=== PATIENT | female | born 1940 | race Caucasian/White ===

== ENCOUNTER → 2019-12-15 13:17 | Outpatient (CLI) | payer MEDICARE, SELFPAY ==
[2019-12-16 07:45] LABS: COVID19 Sendout Not Detected (Not Detect)
== END ==
PROVIDERS: Visit Provider Physician Assistant
DX: Z11.59 Encounter for screening for other viral diseases (principal)
CPT/HCPCS: 87635

== ENCOUNTER 2019-12-19 17:10 | Observation (INO) | payer MEDICARE, SELFPAY ==
[2019-12-11 12:49] VITALS: BMI 31.8
[2019-12-18] VITALS (11 sets, daily range): BP systolic 120–145; BP diastolic 43–79; PULSE 58–71; RESP 15–22; TEMP 35.9–36.4; O2SAT 95–100; BMI 31.7
--- NOTE | 2019-12-18 06:00 | DI.RAD.S_ITS ---
PROCEDURE: XR KNEE LT 1TO2V INDICATIONS: total left knee TECHNIQUE: 2 view(s) of the knee acquired. COMPARISON: None. FINDINGS: Bones: Patient is status post knee joint arthroplasty. Hardware components are in expected positions. Visualized bony structures are intact. Soft tissues: Overlying postoperative changes are noted. IMPRESSION: Expected appearance and alignment status post placement of left knee arthroplasty. Dictated by: Christian FISHMAN Interpreted: Werner Vanessa MD on 12/18/2019 at 16:58 Approved by: Werner Vanessa M.D. on 12/19/2019 at 9:41
[2019-12-18] MEDS: PREGABALIN 75 MG CAPSULE PO (11:02)
[2019-12-18] MEDS: CELECOXIB 200 MG CAPSULE PO (11:02)
[2019-12-18] MEDS: ACETAMINOPHEN 325 MG TABLET 975 MG PO (11:02)
[2019-12-18] MEDS: LACTATED RINGERS 1,000 ML 42 ML IV ×2 (11:05→14:51)
--- NOTE | 2019-12-18 11:23 | PM.PREOP ---
Pre-operative Note COVID-19 COVID-19 status: Negative Result date/Date tested (Pos, Neg/Pending): 12/15/19 Interval Note History & Physical reviewed/Exam performed by Physician: Yes Changes to H&P: No
--- NOTE | 2019-12-18 11:23 | PM.OP.1 ---
Operative Date/Time/Diagnoses Date of procedure: 12/18/19 Time of procedure: 15:28 Pre-op diagnosis: Left knee osteoarthritis Post-op diagnosis: same Procedure & Clinicians Procedure: Left total knee arthroplasty Same procedure as scheduled: Yes Indications: The patient presents today for total knee arthroplasty after failure of conservative treatment. The nature of the procedure including the risks and benefits, alternatives, postoperative course and expected outcome were discussed and all questions answered. Consent was obtained. Operative site confirmed and marked. Surgeon: Rashel Tyler Tool Turret Lathe Set Up Operator: Leonora Robertson Anesthesia Type: General, Spinal, Peripheral nerve block and Local Operative Notes Closure Type: primary Specimen(s): none sent Prosthetic devices, grafts, tissues, transplants, or devices: [employer]hew Anupam BCS: 6 femoral component, 4 tibial component, 9 mm BCS polyethylene tray and 35 x 7.5 mm round patella Applied: implant(s) Estimated Blood Loss (mL): 5 Blood products transfused: none Tourniquet time (min): 54 Procedure in detail: The patient was taken to the operative suite and placed under anesthesia. The patient was given prophylactic antibiotics prior to surgery. The patient was also given tranexamic acid, 1 g, just prior to surgery for postoperative hemostasis. The lateral knee was prepped and the joint injected with 20 mL of 1% Lidocaine with epinephrine. The knee was then prepped and draped in usual sterile fashion. The leg was exsanguinated with an Esmarch dressing and the tourniquet raised to 250 torr. A 15 cm anterior incision was made. Next a medial trivector arthrotomy was made. The extensor mechanism was marked to ensure accurate repair. Initial exposing dissection was carried out medially and laterally. The knee was then flexed and the intramedullary femoral guide brian placed. The distal femoral cut was made in 6? of valgus at the +2 position. The femoral size was measured and the appropriate cutting block was then placed and the anterior, posterior and chamfer cuts made. The intramedullary tibial alignment brian was then placed. The guide was set to remove approximately 10 mm from the less affected lateral side. The proximal tibial cut was then made with an oscillating saw. All meniscus and bony debris was then removed. Posterior femoral osteophytes removed with a curved osteotome. Flexion extension gaps were checked. No specific balancing was required other than routine exposure and removal of osteophytes. The soft tissues were then injected with a combination of 20 mL of half percent Marcaine with epinephrine and 20 mL of Exparel. The trial components were then placed. The knee was then extended and the patellar thickness was measured and a cut made removing approximately 9 mm of bone. The patella was then sized and drilled. Some excess lateral bone was excised and the patellofemoral ligament released. The knee went into full extension and flexion beyond 130?. There was excellent medial-lateral balance throughout motion. Patellar tracking was excellent. The trial components were removed and the knee was cleansed with Pulsavac irrigation and dried. The final components were cemented with high viscosity vacuum mixed bone cement with antibiotics. The joint was filled with a dilute Betadine solution. The knee was held in extension and the patellar clamped until the cement was adequately cured. The knee was then irrigated. The extensor mechanism was closed with 5 interrupted #1 Vicryl sutures and a running Quill suture at approximately 90 degrees of flexion. The joint was then injected with a combination of 1 g of tranexamic acid and 20 mL of quarter percent Marcaine with epinephrine. The subcutaneous tissue was closed with 2 0 Vicryl. The skin was closed with absorbable subcuticular sutures and surgical adhesive. An Aquacel dressing and Alvaro wrap were then applied. The patient tolerated the procedure well and was returned to recovery room in good condition. Complications: none Post-operative Condition: stable Disposition: PACU Plan for aftercare: [facility] Protocol.
[2019-12-18] MEDS: MIDAZOLAM 2 MG/2 ML VIAL IV ×2 (13:29→13:30)
[2019-12-18] MEDS: fentaNYL 100 MCG/2 ML INJ 50 MCG IV (13:29)
--- NOTE | 2019-12-18 13:38 | SUR.PREOP ---
Block start time [1330] . Monitoring initiated and maintained throughout procedure. Oxygen and medications given per anesthesiologist instructions. Patient remained stable throughout procedure, no adverse reactions noted. Block end time [1335].
--- NOTE | 2019-12-18 13:40 | SUR.PREOP ---
Pt tolerated block well start time 1330, end time 1335, 2 Versed iv and 50 Fentanyl given iv prior to start and pt sleeping throughout procedure, VSS throughout procedure.
[2019-12-18] MEDS: CEFAZOLIN 2 GM/100 ML FROZ.PIGGY IV ×2 (14:02→22:25)
[2019-12-18] MEDS: LIDOCAINE 1% W/EPI 20 ML INJ (14:18)
[2019-12-18] MEDS: TRANEXAMIC ACID 1,000 MG VIAL 1000 MG INJ (14:20)
--- NOTE | 2019-12-18 14:36 | SUR.OPER ---
Supine on padded OR bed. Pillow under head, arms secured on padded armboards <90 degree abduction. Safety belt across torso. Non-operative leg secured with tape over blanket over lower leg. Operative leg secured in DeMayo/Tod positioner. Foam padded brace at thigh of operative leg.
[2019-12-18] MEDS: BUPIVACAINE 0.25% W/ EPI (PF) 40 ML, BUPIVACAINE LIPOSOME 266 MG, SODIUM CHLORIDE 0.9% ... INJ (14:48)
[2019-12-18] MEDS: BUPIVACAINE 0.25% W/ EPI (PF) 20 ML, TRANEXAMIC ACID 1,000 MG, SODIUM CHLORIDE 0.9% 10 ML INJ (14:49)
[2019-12-18] MEDS: SODIUM CHLORIDE IRRIG SOLUTION 250 ML, POVIDONE-IODINE SPONGE STICKS 1 APPLIC IRR (14:53)
--- NOTE | 2019-12-18 16:53 | PC.NURSE ---
1635 - Pt to room from OR. Alexis CDI, ice pack in place. SCD's initiated. Pt awake and interactive, but then became tearful. Stating that she doesn't do well with pain. Shaking head with eyes clenched tight, Reporting pain to lower back. I don't lay on my back. Assist to reposition. Pt states knee pain is now, overtaking back pain. Continues to be tearful. Discussed pain control option. Pt denies nausea. I will take whatever. Oriented to safety and call light use. Call light in reach.
[2019-12-18] MEDS: LACTATED RINGERS 1,000 ML 100 ML IV (16:57)
[2019-12-18] MEDS: IBUPROFEN 400 MG TABLET PO ×2 (17:00→22:25)
[2019-12-18] MEDS: OXYCODONE IR 10 MG TABLET PO (17:01)
[2019-12-18] MEDS: HYDROMORPHONE 0.5 MG INJ 0.2 MG IV (17:34)
[2019-12-18] MEDS: ONDANSETRON 4 MG/2 ML INJ IV (18:16)
[2019-12-18] MEDS: ACETAMINOPHEN 325 MG TABLET 650 MG PO (22:24)
[2019-12-18] MEDS: ASPIRIN EC 81 MG TABLET PO (22:25)
[2019-12-18] MEDS: DOCUSATE 100 MG CAPSULE PO (22:25)
[2019-12-19] VITALS (7 sets, daily range): BP systolic 124–153; BP diastolic 53–84; PULSE 58–87; RESP 16–20; TEMP 35.9–37.5; O2SAT 93–100
[2019-12-19] MEDS: IBUPROFEN 400 MG TABLET PO ×6 (00:46→21:50)
[2019-12-19] MEDS: OXYCODONE IR 10 MG TABLET PO ×4 (02:45→19:22)
[2019-12-19] MEDS: LACTATED RINGERS 1,000 ML 100 ML IV (02:47)
[2019-12-19 05:21] LABS: Hematocrit 33.4 % (36-46); Hemoglobin 11.6 g/dL (12.0-16.0)
[2019-12-19] MEDS: CEFAZOLIN 2 GM/100 ML FROZ.PIGGY IV (06:01)
--- NOTE | 2019-12-19 09:25 | PT.IIE ---
Current Diagnoses Bilateral primary osteoarthritis of knee (12/18/19) Surgery Performed Operation Date: 12/18/19 12:45 Actual Procedures p Total Knee Arthroplasty(Left) - Rashel Tyler MD Surgical History (Last Updated 05/20/19 @ 13:26 by Amara Vasquez RN) History of bilateral hip arthroplasty (Acute) History of esophagogastroduodenoscopy (EGD) (Acute 2019) History of hysterectomy (Acute) Hx of appendectomy (Acute) Hx of bilateral cataract extraction (Acute 2019) Medical History (Last Updated 05/20/19 @ 13:26 by Amara Vasquez RN) Noe's esophagus (Acute) Colitis (Acute) Diverticulitis (Acute) Eczema (Acute) Meningioma (Acute ~2013) 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 pt stays on main level of the house 4 steps with B rails to enter the house from the garage ramp to enter from the front Home Environment Standard Height Toilet,Walk in Shower,Built-In Shower Seat, Ramp Home Equipment Front Wheel Walker,Four Wheel Walker,Raised Toilet Seat Without Armrests,Hand Held Shower,Grab Bars Near Toilet, Grab Bars In Shower Additional Social History Comment pt stated that spouse has PD. has a caregiver 02/10 and can also assist pt. pt has a bidet at home M2 PT-IP Current Condition Start: 12/19/19 12:59 Freq: NEEDED Status: Active Protocol: Document 12/19/19 09:25 AB (Rec: 12/19/19 13:16 [email or web address]) Physical Therapy Current Condition Current Condition Evaluation Date 12/19/19 Treatment Diagnosis s/p L TKA; difficulty in walking Onset Date 12/18/19 Weight Bearing Status Weight Bearing Status Weight Bear as Tolerated Allowed Weight Bearing Amount (enter % LLE WBAT or #) (%) M3 PT-IP Subjective Start: 12/19/19 12:59 Freq: NEEDED Status: Active Protocol: Document 12/19/19 09:25 AB (Rec: 12/19/19 13:16 [id number]) Subjective Physical Therapy Visit Type Type Initial Evaluation Visit Start Time 09:25 Visit Stop Time 10:37 Total Visit Minutes 72 Number of SENIOR TELECOMMUNICATIONS TECHNICIAN Visits 0 Physical Therapy Visit Comments Patient Comments pt is agreeable to do PT; c/o nausea Therapy Pain Assessment Pain When Pain Assessed During Mobility Pain Present Pain Present Pain Reported Location Left Knee Intensity 7 Scale Used Numeric (0 - 10) Pain Management Techniques Apply Cold,Distraction, Modification of Treatment,Re- positioning,Timing of Activity with Medications M4 PT-IP Mobility and Gait Start: 12/19/19 12:59 Freq: NEEDED Status: Active Protocol: Document 12/19/19 09:25 AB (Rec: 12/19/19 13:16 [email or web address]) PT-Bed Mobility Assessment Supine to Sit Supine to Sit Moderate Assistance,1 Person Assistance,Head of Bed Elevated PT-Transfer Assessment Sit to and From Stand Sit to and from Stand Moderate Assistance,Maximum Assistance,1 Person Assistance ,Use of Upper Extremities Equipment Transfer Assistive Device Gait Belt,Front Wheeled Walker Orthotic/Prosthetic Devices or Brace: No Transfers Transfer Destination Chair,Toilet Transfer Technique Stand Step Pivot Transfer Ability Level of Assist Moderate Assistance,Maximum Assistance,1 Person Assistance ,Use of Upper Extremities Comments Mobility Comments BP has bee stable throughout PT session: 121/65 to 133/63 pt completed supine to sit mod A with LLE. pt was able to sit on EOB SBA. c/o increase nausea. completed sit to stand mod/max A and max cues. able to complete step transfer using FWW to chair mod/max A. pt requested to use the toilet and completed sit to stand from chair mod/ max A and ambulated to the toilet using FWW mod/max A. pt continues to c/o nausea and lightheadedness. placed chair close to pt. pt completed sit to stand from the toilet using grab bar max A and cues and was able to take steps to the chair using FWW mod/max A and cues. positioned pt on chair. call light and table placed within reach. Gait Assessment Gait Gait Assistance Required: Moderate Assistance,Maximum Assistance,1 Person Assist Distance (Feet) 10 Able to Maintain Weight Bearing Status Yes During Gait Assistive Devices Assistive Device Gait Belt,Front Wheeled Walker Orthotic/Prosthetic Devices or Brace: No Gait Deviations General Gait Pattern Antalgic,Decreased Stride Length,Decreased Feet Clearance,Step-to Gait Factors Limiting Gait Function Factors Limiting Gait Function Decreased Activity Tolerance, Decreased Strength,Difficulty Following Directions,Limited Range of Motion,Pain,Poor Balance,Poor Safety Awareness Comments Gait Comments pls refer to mobility section for details PT-Balance Assessment Sitting Balance and Reactions Static Sitting Balance Ability Good Dynamic Sitting Balance Ability Good Standing Balance and Reactions Static Standing Balance Ability Fair Dynamic Standing Balance Ability Fair Device Used FWW M5 PT-IP Objective Assessments Start: 12/19/19 12:59 Freq: NEEDED Status: Active Protocol: Document 12/19/19 09:25 AB (Rec: 12/19/19 13:16 AB [email or web address]) Orientation Orientation/Cognition Level of Alertness Alert Orientation Name,Place,Situation Language Function Ability Hard of Hearing Safety Awareness Decreased Safety Awareness Gross Range of Motion Lower Extremity ROM Impairments L knee flexion: ~ 60 deg L knee extension: lacking ~ 15 deg to 0 Strength Lower Extremity Strength Assessment Left Impaired Hip 3+/5 Knee 3+/5 Sensation Assessment Sensation Gross Sensation WNL Muscle Tone Muscle Tone WNL Yes M6 PT-IP Treatment Start: 12/19/19 12:59 Freq: NEEDED Status: Active Protocol: Document 12/19/19 09:25 AB (Rec: 12/19/19 13:16 AB [id number]) Physical Therapy Treatment Exercises Exercises Quad Sets,Heel Slides Education Education Provided Precautions,Weight Bearing Status,Post-Op Packet,Safety M7 PT-IP Assessment and Plan Start: 12/19/19 12:59 Freq: NEEDED Status: Active Protocol: Document 12/19/19 09:25 AB (Rec: 12/19/19 13:16 AB [email or web address]) PT Summary Assessment and Plan Potential Rehabilitation Potential Good Status of Condition at Evaluation Evolving Summary Impairments Pain,ROM,Strength,Balance, Cognition,Bed Mobility, Transfers,Gait,Activity Tolerance Assessment Summary pt requiring mod/max A with mobility and unable to tolerate much activity with c/ o increase pain, nause and lightheadedness. pt unable to ambulate much this morning. pt plans to go home but at this time, may require SNF rehab. will continue to assess progress and will conduct caregiver training whe appropriate. Goals Bed Mobility Goal Standby Assistance Transfer Goal Standby Assistance,Front Wheeled Walker Gait Goal Standby Assistance,Front Wheel Walker Gait Distance 150 Days to Meet Goals 5 Frequency of Treatment Frequency Of Treatment Twice a Day Treatment Plan Physical Therapy Treatment Plan Bed Mobility Training,Transfer Training,Gait Training, Therapeutic Exercise,Balance Retraining,Post Op Education, Discharge Planning,Hot or Cold Pack,Neuromuscular Re-ed, Coordination Retraining,Manual Therapy Other Recommendations and Next Treatment ambulation, caregiver training Focus whe appropriate Recommendations To Nursing Amount of Assist Needed 1 Person Assist Discharge Recommendations PT Discharge Recommendations Home with 02/10 Assist,Home Health,SNF Rehab,Outpatient PT Transportation Needs at Discharge Private Vehicle,Wheelchair/ Cabulance
[2019-12-19] MEDS: ACETAMINOPHEN 325 MG TABLET 650 MG PO ×3 (09:35→21:48)
[2019-12-19] MEDS: ASPIRIN EC 81 MG TABLET PO ×2 (09:35→21:48)
[2019-12-19] MEDS: DOCUSATE 100 MG CAPSULE PO ×2 (09:36→21:48)
--- NOTE | 2019-12-19 09:40 | PM.PN.1 ---
Subjective Subjective Date Patient Seen: 12/19/19 Time Patient Seen: 10:10 Interval history: Patient is POD#1 s/p left TKA with Dr. Tyler. Pain has been well controlled. She has mobilized about the room. No nausea/vomiting, chest pain or shortness of breath. No complaints. Exam Vital Signs (past 8 hours): - 12/19/19 03:15 Temperature 97.7 F Pulse Rate 64 Respiratory Rate 20 Blood Pressure 137/67 Pulse Oximetry 95 Oxygen Delivery Method Room Air Oxygen Flow Rate 0 Narrative Exam Narrative: 79 year old female resting in bed alert and oriented in no acute distress. Dressing in place is CDI. Neurovascularly intact in distal extremity. Calves are soft. Objective Labs Result Diagrams: 12/19/19 04:55 Labs: Laboratory Results - last 24 hr 12/19/19 04:55 Hgb 11.6 L Hct 33.4 L Assessment & Plan Assessment & Plan narrative: Patient doing well postop. ASA 81mg BID for DVT prophylaxis. She will work with PT today. She has hired a caregiver for postop care. Likely discharge to home later today pending PT clearance. Quality VTE Deep Vein Thrombosis/Pulmonary Embolism Present on Admission: No
[2019-12-19] MEDS: ONDANSETRON 4 MG ODT PO ×2 (10:07→19:22)
--- NOTE | 2019-12-19 11:35 | PC.NURSE ---
Addendum entered by Liliana Rico R.N. 12/19/19 15:32: Patient complained of pain, another 5mg of oxycodone given at 1520, for a total of 10mg. Patient was to groggy initally to give 10mg at one time. She is more comfortable. Patient does not tolerate the least bit of pain or understand that after she works with therapy and walks she is going to have some discomfort. Resting now. Addendum entered by Liliana Rico R.N. 12/19/19 14:29: Patient only given 5mg of oxycodone at 1400 as she was groggy before, she was agreeable to this for working with physical therapy this afternoon. Original Note: Patient given oxycodone 10mg earlier this am and helpful. Patient had a small 25cc emesis of bile, she was given zofran otc earlier. She states that she is feeling better. Patient has an aquacel to her l.knee with ryan wrap in place. She worked with Physical Therapy and had a tough time moving, she was able to take steps and ambulate to the restroom. Visiting with a friend now, her cms is wnl and ppx2.
--- NOTE | 2019-12-19 13:53 | CM.IDA ---
Initial DCP Assessment Note Pt is an 79 yo female, resident of [place], now POD#1 from Left knee surgery w/ Dr Tyler PCP: Joycelyn Padgett Payer: NAT/MELA Met w/patient and her friend Antoine this morning, introduced role. Patient plans to DC home, she does not think she will need HH, has scheduled outpatient PT to start in a week, patient states therapy team agrees w/this (?) Patient is active and indp. at baseline, she cares for her who has Parkinson's. Patient has hired 2 caregivers for at least 3 weeks to assist she and her w/chores and ADLs, patient paying out of pocket. Patient's spouse has 4 adult children that live across the country and numerous grandchildren, patient states none of whom can assist her at this time. Patient expects no needs from DCP team, takes down contact information for [employer] team in case any DC needs or concerns arise. Upon review of afternoon PT note, recommendation is home w/24-7 assist vs SNF d/t slow movement today, requiring a lot of assist. May need to reassess POD#2, although patient seems adamant about returning home and is currently SDC (possibly will switch to obs if stays the night) and would need to pay for SNF out of pocket Following closely. MEMO Hitchcock
[2019-12-19] MEDS: OXYCODONE IR 5 MG TABLET PO ×3 (13:58→22:47)
--- NOTE | 2019-12-19 14:10 | PT.IPTN ---
Current Diagnoses Bilateral primary osteoarthritis of knee (12/18/19) Surgery Performed Operation Date: 12/18/19 12:45 Actual Procedures p Total Knee Arthroplasty(Left) - Rashel Tyler MD Physical Therapy Treatment Note M2 PT-IP Current Condition Start: 12/19/19 12:59 Freq: NEEDED Status: Active Protocol: Document 12/19/19 09:25 AB (Rec: 12/19/19 13:16 AB [email or web address]) Physical Therapy Current Condition Current Condition Evaluation Date 12/19/19 Treatment Diagnosis s/p L TKA; difficulty in walking Onset Date 12/18/19 Weight Bearing Status Weight Bearing Status Weight Bear as Tolerated Allowed Weight Bearing Amount (enter % LLE WBAT or #) (%) M3 PT-IP Subjective Start: 12/19/19 12:59 Freq: NEEDED Status: Active Protocol: Document 12/19/19 14:10 AB (Rec: 12/19/19 15:44 AB [email or web address]) Subjective Physical Therapy Visit Type Type Treatment Note Visit Start Time 14:10 Visit Stop Time 14:57 Total Visit Minutes 47 Number of FREIGHT BRAKEMAN Visits 0 Physical Therapy Visit Comments Patient Comments pt is agreeable to do PT Therapy Pain Assessment Pain When Pain Assessed At Rest Pain Present Pain Present Pain Reported Location Left Knee Intensity 6 Scale Used increases to 8 with mobility Pain Management Techniques Apply Cold,Distraction, Modification of Treatment,Re- positioning,Timing of Activity with Medications M4 PT-IP Mobility and Gait Start: 12/19/19 12:59 Freq: NEEDED Status: Active Protocol: Document 12/19/19 14:10 AB (Rec: 12/19/19 15:44 AB [email or web address]) PT-Bed Mobility Assessment Sit to Supine Sit to Supine Moderate Assistance,1 Person Assistance PT-Transfer Assessment Sit to and From Stand Sit to and from Stand Moderate Assistance,Maximum Assistance,1 Person Assistance ,Use of Upper Extremities Equipment Transfer Assistive Device Gait Belt,Front Wheeled Walker Orthotic/Prosthetic Devices or Brace: No Transfers Transfer Destination Toilet Transfer Technique ambulated using FWW Transfer Ability Level of Assist Moderate Assistance,Maximum Assistance,1 Person Assistance ,Use of Upper Extremities Comments Mobility Comments completed sit to stand from chair mod/max A and max cues. c/o increase pain and nausea. BP: 136/79. pt completed ambulated using FWW to the toilet mod to max A and max cues. required max A for sit to stand from the toilet and was able to maintain standing using FWW for support while NAC assisted with hygiene care and brief management. pt ambulated in room ~ 25 ft using FWW mod to max A and max cues. pt with c/o increase pain. completed sit to supine mod A for elevated LE up to bed. positioned pt on bed. call light and table placed within reach. educated pt on current mobility assistance and recommendation of SNF but pt refused. set up caregiver training for tomorrow at 10 am . recommending homehealth PT and pt agreed. Pt stated that she also has an electric w/c that she can use if needed. Talked to nurse regarding pain control and stated that she will do what she can for pain meds adjustment. Gait Assessment Gait Gait Assistance Required: Moderate Assistance,Maximum Assistance,1 Person Assist Distance (Feet) 25 Able to Maintain Weight Bearing Status Yes During Gait Assistive Devices Assistive Device Gait Belt,Front Wheeled Walker Orthotic/Prosthetic Devices or Brace: No Gait Deviations General Gait Pattern Antalgic,Decreased Stride Length,Decreased Feet Clearance,Step-to Gait Factors Limiting Gait Function Factors Limiting Gait Function Decreased Activity Tolerance, Decreased Strength,Limited Range of Motion,Pain,Poor Balance,Poor Safety Awareness M5 PT-IP Objective Assessments Start: 12/19/19 12:59 Freq: NEEDED Status: Active Protocol: Document 12/19/19 09:25 AB (Rec: 12/19/19 13:16 AB [email or web address]) Orientation Orientation/Cognition Level of Alertness Alert Orientation Name,Place,Situation Language Function Ability Hard of Hearing Safety Awareness Decreased Safety Awareness Gross Range of Motion Lower Extremity ROM Impairments L knee flexion: ~ 60 deg L knee extension: lacking ~ 15 deg to 0 Strength Lower Extremity Strength Assessment Left Impaired Hip 3+/5 Knee 3+/5 Sensation Assessment Sensation Gross Sensation WNL Muscle Tone Muscle Tone WNL Yes M6 PT-IP Treatment Start: 12/19/19 12:59 Freq: NEEDED Status: Active Protocol: Document 12/19/19 14:10 AB (Rec: 12/19/19 15:44 AB [email or web address]) Physical Therapy Treatment Education Education Provided Safety M7 PT-IP Assessment and Plan Start: 12/19/19 12:59 Freq: NEEDED Status: Active Protocol: Document 12/19/19 14:10 AB (Rec: 12/19/19 15:44 AB [email or web address]) PT Summary Assessment and Plan Potential Rehabilitation Potential Good Summary Impairments Pain,ROM,Strength,Balance, Coordination,Sensation,Tone, Cognition,Bed Mobility, Transfers,Gait,Activity Tolerance Progress Towards Goals Slow Progress due to Pain Assessment Summary pt continues to require mod to max A with mobility and unable to tolerate much due to c/o increase pain and nausea. caregiver training will be conducted tomorrow at 10 am and will determine safe d/c plan depending on caregiver training. if pt goes home, pt will require homehealth PT. will continue to assess progress. Goals Bed Mobility Goal Standby Assistance Transfer Goal Standby Assistance,Front Wheeled Walker Gait Goal Standby Assistance,Front Wheel Walker Gait Distance 150 Days to Meet Goals 5 Frequency of Treatment Frequency Of Treatment Twice a Day Treatment Plan Physical Therapy Treatment Plan Bed Mobility Training,Transfer Training,Gait Training, Therapeutic Exercise,Balance Retraining,Post Op Education, Discharge Planning,Hot or Cold Pack,Neuromuscular Re-ed, Coordination Retraining,Manual Therapy Other Recommendations and Next Treatment ambulation, caregiver training Focus 12/19/19 @10 am Recommendations To Nursing Amount of Assist Needed 1 Person Assist Discharge Recommendations PT Discharge Recommendations Home with 02/10 Assist,Home Health,SNF Rehab,Outpatient PT Transportation Needs at Discharge Private Vehicle,Wheelchair/ Cabulance
[2019-12-19] MEDS: HYDROMORPHONE 0.5 MG INJ 0.2 MG IV (20:27)
--- NOTE | 2019-12-19 20:36 | PC.NURSE ---
Patient pain uncontrolled throughout shift. Patient states she gets intense muscle spasms that comes in waves several times an hour. Placed call to Dr. Charlton who ordered Valium 5mg Q4H PRN for muscle spasms, as well as Tums 1000mg Q4H PRN per patient request.
[2019-12-19] MEDS: CALCIUM CARBONATE 500 MG TAB 1000 MG PO (20:39)
[2019-12-19] MEDS: diazePAM 5 MG TABLET PO (20:40)
[2019-12-20] MEDS: IBUPROFEN 400 MG TABLET PO ×3 (01:50→14:10)
[2019-12-20] MEDS: OXYCODONE IR 10 MG TABLET PO ×3 (01:50→14:09)
[2019-12-20 03:50] VITALS: BP 132/68; PULSE 68; RESP 16; TEMP 36.4; O2SAT 94
[2019-12-20] MEDS: diazePAM 5 MG TABLET PO ×2 (03:50→10:16)
[2019-12-20 08:16] VITALS: O2SAT 97
[2019-12-20] MEDS: ACETAMINOPHEN 325 MG TABLET 650 MG PO ×2 (08:40→14:10)
[2019-12-20] MEDS: ASPIRIN EC 81 MG TABLET PO (08:41)
[2019-12-20] MEDS: DOCUSATE 100 MG CAPSULE PO (08:41)
[2019-12-20 09:34] VITALS: BP 122/63; PULSE 60; RESP 16; TEMP 36.4; O2SAT 96
--- NOTE | 2019-12-20 09:55 | PT.IPTN ---
Current Diagnoses Bilateral primary osteoarthritis of knee (12/18/19) Surgery Performed Operation Date: 12/18/19 12:45 Actual Procedures p Total Knee Arthroplasty(Left) - Rashel Tyler MD Physical Therapy Treatment Note M2 PT-IP Current Condition Start: 12/19/19 12:59 Freq: NEEDED Status: Active Protocol: Document 12/19/19 09:25 AB (Rec: 12/19/19 13:16 AB [id number]) Physical Therapy Current Condition Current Condition Evaluation Date 12/19/19 Treatment Diagnosis s/p L TKA; difficulty in walking Onset Date 12/18/19 Weight Bearing Status Weight Bearing Status Weight Bear as Tolerated Allowed Weight Bearing Amount (enter % LLE WBAT or #) (%) M3 PT-IP Subjective Start: 12/19/19 12:59 Freq: NEEDED Status: Active Protocol: Document 12/20/19 09:55 AB (Rec: 12/20/19 11:02 AB [id number]) Subjective Physical Therapy Visit Type Type Treatment Note Visit Start Time 09:55 Visit Stop Time 10:35 Total Visit Minutes 40 Notes caregiver training was scheduled at 10 am today but pt stated that caregiver cannot come in this morning and will come in at 1 pm. stated the one caregiver did not come in to take care of her so the other caregiver that supposedly should have come in for training was not able to come in because she cannot leave pt 's spouse alone at home. Number of FUNCTIONAL SKILLS TUTOR Visits 0 Physical Therapy Visit Comments Patient Comments pt is agreeable to do PT Therapy Pain Assessment Pain When Pain Assessed At Rest Pain Present Pain Present Pain Reported Location Left Knee Intensity 5 Scale Used Numeric (0 - 10) Description Spasm Pain Management Techniques Distraction,Modification of Treatment,Re-positioning, Timing of Activity with Medications M4 PT-IP Mobility and Gait Start: 12/19/19 12:59 Freq: NEEDED Status: Active Protocol: Document 12/20/19 09:55 AB (Rec: 12/20/19 11:02 AB [id number]) PT-Transfer Assessment Sit to and From Stand Sit to and from Stand Moderate Assistance,Maximum Assistance,1 Person Assistance ,Use of Upper Extremities Equipment Transfer Assistive Device Gait Belt,Front Wheeled Walker Orthotic/Prosthetic Devices or Brace: No Transfers Transfer Destination Bed,Toilet Transfer Technique ambulated using FWW Transfer Ability Level of Assist Standby Assistance,Contact Guard Assistance,1 Person Assistance,Use of Upper Extremities Comments Mobility Comments completed sit to stand from chair x 3 attempts max A and max cues. ambulated in room using FWW ~ 15 ft SBA to CGA. c/o increase knee pain and nausea. sat on EOB to rest. nurse aware of pain and gave pt meds. completed sit to stand from bed mod A and cues x 2 attempts. ambulated ~ 12 ft using FWW SBA to CGA and cues. pt sat on EOB and rested. was about to do bed mobility training but pt requested to use the toilet and ambulated to the toilet using FWW SBA. pt wanted to sit on the toilet for a while. call light positioned next to pt and instructed to ask for assist. informed nurse that pt is on the toilet. Gait Assessment Gait Gait Assistance Required: Standby Assistance,Contact Guard Assist Distance (Feet) 15 Able to Maintain Weight Bearing Status Yes During Gait Assistive Devices Assistive Device Gait Belt,Front Wheeled Walker Orthotic/Prosthetic Devices or Brace: No Gait Deviations General Gait Pattern Antalgic,Decreased Stride Length,Decreased Feet Clearance,Step-to Gait Factors Limiting Gait Function Factors Limiting Gait Function Decreased Activity Tolerance, Decreased Strength,Difficulty Following Directions,Limited Range of Motion,Pain,Poor Balance M5 PT-IP Objective Assessments Start: 12/19/19 12:59 Freq: NEEDED Status: Active Protocol: Document 12/19/19 09:25 AB (Rec: 12/19/19 13:16 AB [id number]) Orientation Orientation/Cognition Level of Alertness Alert Orientation Name,Place,Situation Language Function Ability Hard of Hearing Safety Awareness Decreased Safety Awareness Gross Range of Motion Lower Extremity ROM Impairments L knee flexion: ~ 60 deg L knee extension: lacking ~ 15 deg to 0 Strength Lower Extremity Strength Assessment Left Impaired Hip 3+/5 Knee 3+/5 Sensation Assessment Sensation Gross Sensation WNL Muscle Tone Muscle Tone WNL Yes M6 PT-IP Treatment Start: 12/19/19 12:59 Freq: NEEDED Status: Active Protocol: Document 12/20/19 09:55 AB (Rec: 12/20/19 11:02 AB [id number]) Physical Therapy Treatment Exercises Exercises Heel Slides Education Education Provided Safety M7 PT-IP Assessment and Plan Start: 12/19/19 12:59 Freq: NEEDED Status: Active Protocol: Document 12/20/19 09:55 AB (Rec: 12/20/19 11:02 AB [id number]) PT Summary Assessment and Plan Potential Rehabilitation Potential Good Summary Impairments Pain,ROM,Strength,Balance, Coordination,Sensation,Tone, Cognition,Bed Mobility, Transfers,Gait,Activity Tolerance Progress Towards Goals Slow Progress due to Pain Assessment Summary pt continues to have increase L knee pain affecting mobility and activity tolerance. ambulation is steadier today but continues to be limted due to pain. pt plans to just use her electric w/c to get into her house with a ramp entry. caregiver set to come in at 1pm for training today. pt will require homehealth PT . pt also stated that her friend will bring her electric w/c when he picks her up on d /c and his van has a lift for the electric w/c. Goals Bed Mobility Goal Standby Assistance Transfer Goal Standby Assistance,Front Wheeled Walker Gait Goal Standby Assistance,Front Wheel Walker Gait Distance 150 Days to Meet Goals 5 Frequency of Treatment Frequency Of Treatment Twice a Day Treatment Plan Physical Therapy Treatment Plan Bed Mobility Training,Transfer Training,Gait Training, Therapeutic Exercise,Balance Retraining,Post Op Education, Discharge Planning,Hot or Cold Pack,Neuromuscular Re-ed, Coordination Retraining,Manual Therapy Other Recommendations and Next Treatment ambulation, caregiver training Focus 12/19/19 @1pm Recommendations To Nursing Amount of Assist Needed 1 Person Assist Discharge Recommendations PT Discharge Recommendations Home with 02/10 Assist,Home Health Transportation Needs at Discharge Private Vehicle
--- NOTE | 2019-12-20 10:01 | PM.PNPO.1 ---
Subjective Subjective Date Patient Seen: 12/20/19 Time Patient Seen: 10:01 Interval history: POD #2 s/p L TKA with Dr. Tyler. Patient had significant muscle spasms yesterday. She was provided Valium and this is alleviated the muscle spasms significantly. She was slow to mobilize after her previous total knee arthroplasty but states she is doing much better after this total knee arthroplasty. She has a caregiver lined up for home. Exam Vital Signs (past 8 hours): - 12/20/19 03:50 12/20/19 08:16 12/20/19 09:34 Temperature 97.5 F L 97.6 F Pulse Rate 68 60 Respiratory Rate 16 16 Blood Pressure 132/68 122/63 Pulse Oximetry 94 97 96 Oxygen Delivery Method Room Air Oxygen Flow Rate 0 Narrative Exam Narrative: Patient sitting in bedside chair no acute distress. She is alert oriented x3. Calves are soft, compressible, nontender bilaterally. Pulses are 2+ and symmetrical. Dressing on left knee is CDI. Alvaro wrap in place. She is able to actively dorsiflex plantar flex. Objective Labs Result Diagrams: 12/19/19 04:55 Assessment & Plan Post-op Postoperative Procedures: Procedures Operation Date: 12/18/19 12:45 Actual Procedures Side Surgeon p Total Knee Arthroplasty Left Rashel Tyler MD Patient mobilize with PT today. Will continue Valium for muscle spasms. Will send her home with Lisafran as she complaints of some mild nausea today. She has oxycodone at home already. If she is able to mobilize safely with adequate pain control she could go home today with her caregiver. Quality VTE Deep Vein Thrombosis/Pulmonary Embolism Present on Admission: No
[2019-12-20] MEDS: SODIUM CHLORIDE 0.9% FLUSH 10 ML IV (10:16)
--- NOTE | 2019-12-20 12:57 | CM.DPC ---
DCP Cont for HH Per Ortho PA, pt may be stable for d/c home today pending CG training with PT. Per PT, pt's CG was not able to make the 1000 scheduled CG training but will be present bedside around 1300. PT still recommending HH for safe d/c home with CG. SW met bedside with pt prior to 1300 CG training and she confirms that she is feeling significantly better than yesterday but still with pain and requiring assist. Pt has hx of [facility] for SNF for 2 prior surgeries but is hopeful for home when stable for discharge. Pt denies any hx of HH herself but states her recently had [facility] and she felt they provided good services. SW gave pt the HH Choice List and preference is [facility] again. SW called [facility] and gave new referral and then faxed clinicals along with F2F and MD orders and updated pt likely to d/c later today or tomorrow pending CG training soon and pain management. [facility] confirms they should be able to have start of care on Sunday12/22/19. Plan: SW to follow after CG training with PT today around 1300 towards plan of home with CG support and new [facility] referral. SW to fax d/c summary to [facility] at discharge. MEMO Faust
[2019-12-20 13:07] VITALS: BP 125/66; PULSE 61; RESP 15; TEMP 36.6; O2SAT 97
--- NOTE | 2019-12-20 13:17 | PT.IPTN ---
Current Diagnoses Bilateral primary osteoarthritis of knee (12/18/19) Surgery Performed Operation Date: 12/18/19 12:45 Actual Procedures p Total Knee Arthroplasty(Left) - Rashel Tyler MD Physical Therapy Treatment Note M2 PT-IP Current Condition Start: 12/19/19 12:59 Freq: NEEDED Status: Active Protocol: Document 12/19/19 09:25 AB (Rec: 12/19/19 13:16 AB [id number]) Physical Therapy Current Condition Current Condition Evaluation Date 12/19/19 Treatment Diagnosis s/p L TKA; difficulty in walking Onset Date 12/18/19 Weight Bearing Status Weight Bearing Status Weight Bear as Tolerated Allowed Weight Bearing Amount (enter % LLE WBAT or #) (%) M3 PT-IP Subjective Start: 12/19/19 12:59 Freq: NEEDED Status: Active Protocol: Document 12/20/19 13:17 AB (Rec: 12/20/19 15:25 AB [id number]) Subjective Physical Therapy Visit Type Type Treatment Note Visit Start Time 13:17 Visit Stop Time 14:05 Total Visit Minutes 48 Number of MANUFACTURING ENGINEER Visits 0 Physical Therapy Visit Comments Patient Comments pt is agreeable to do PT. caregiver in room for training Therapy Pain Assessment Pain When Pain Assessed At Rest Pain Present Pain Present Pain Reported Location Left Knee Intensity 5 Scale Used Numeric (0 - 10) Pain Management Techniques Distraction,Re-positioning, Timing of Activity with Medications M4 PT-IP Mobility and Gait Start: 12/19/19 12:59 Freq: NEEDED Status: Active Protocol: Document 12/20/19 13:17 AB (Rec: 12/20/19 15:25 AB [id number]) PT-Bed Mobility Assessment Supine to Sit Supine to Sit Moderate Assistance,1 Person Assistance Sit to Supine Sit to Supine Moderate Assistance,1 Person Assistance PT-Transfer Assessment Sit to and From Stand Sit to and from Stand Minimal Assistance,1 Person Assistance,Use of Upper Extremities Equipment Transfer Assistive Device Gait Belt,Front Wheeled Walker Orthotic/Prosthetic Devices or Brace: No Transfers Transfer Destination Chair Transfer Technique Stand Step Pivot Comments Mobility Comments pt sitting on EOB. caregiver in room for training. educated caregiver on how to use safety belt and how to assist pt. caregiver was able to put safety belt on, assist pt with sit to stand and ambulation in room using FWW ~ 35 ft SBA to CGA. pt completed bed mobility supine <>sit x 2 sets and caregiver was able to assist and cue pt appropriately. pt completed transfer from bed to chair using FWW min A and cues. pt asked regarding car transfers. Pt informed PT this morning that she will have her friend get her electric w/c at home and go home on an electric w/c since her friend as a van with w/c lift. pt stated that she really don't want to do that. pt called his friend and friend stated that the car chair is 31 in above the ground and 11 inches away from the door. informed pt that this will be too high and at this time, pt is not safe to step up even to use a step stool. informed pt regarding safety with transfers and agreed to use electric w/c to go home. Gait Assessment Gait Gait Assistance Required: Standby Assistance,Contact Guard Assist Distance (Feet) 35 Able to Maintain Weight Bearing Status Yes During Gait Assistive Devices Assistive Device Gait Belt,Front Wheeled Walker Orthotic/Prosthetic Devices or Brace: No Gait Deviations General Gait Pattern Antalgic,Decreased Stride Length,Decreased Feet Clearance,Step-to Gait M5 PT-IP Objective Assessments Start: 12/19/19 12:59 Freq: NEEDED Status: Active Protocol: Document 12/19/19 09:25 AB (Rec: 12/19/19 13:16 AB [id number]) Orientation Orientation/Cognition Level of Alertness Alert Orientation Name,Place,Situation Language Function Ability Hard of Hearing Safety Awareness Decreased Safety Awareness Gross Range of Motion Lower Extremity ROM Impairments L knee flexion: ~ 60 deg L knee extension: lacking ~ 15 deg to 0 Strength Lower Extremity Strength Assessment Left Impaired Hip 3+/5 Knee 3+/5 Sensation Assessment Sensation Gross Sensation WNL Muscle Tone Muscle Tone WNL Yes M6 PT-IP Treatment Start: 12/19/19 12:59 Freq: NEEDED Status: Active Protocol: Document 12/20/19 13:17 AB (Rec: 12/20/19 15:25 AB [id number]) Physical Therapy Treatment Exercises Exercises Heel Slides Education Education Provided Safety Other Treatments Other Treatment Performed educated caregiver on how to assist pt with heel slides and counterdemonstrated. M7 PT-IP Assessment and Plan Start: 12/19/19 12:59 Freq: NEEDED Status: Active Protocol: Document 12/20/19 13:17 AB (Rec: 12/20/19 15:25 AB [id number]) PT Summary Assessment and Plan Potential Rehabilitation Potential Good Summary Impairments Pain,ROM,Strength,Balance, Coordination,Sensation,Tone, Cognition,Bed Mobility, Transfers,Gait,Activity Tolerance Progress Towards Goals Slow Progress due to Pain Assessment Summary Caregiver training conducted and caregiver is able to safely assist pt with mobility and cue pt appropriately. pt continues to present with decrease activity tolerance and unable to walk far. educated pt on safety and having resting stations at home and using bedside commode at night. pt and caregiver understood and agreed. pt will need home health PT on d/ c. Goals Bed Mobility Goal Standby Assistance Transfer Goal Standby Assistance,Front Wheeled Walker Gait Goal Standby Assistance,Front Wheel Walker Gait Distance 150 Days to Meet Goals 5 Frequency of Treatment Frequency Of Treatment Twice a Day Treatment Plan Physical Therapy Treatment Plan Bed Mobility Training,Transfer Training,Gait Training, Therapeutic Exercise,Balance Retraining,Post Op Education, Discharge Planning,Hot or Cold Pack,Neuromuscular Re-ed, Coordination Retraining,Manual Therapy Recommendations To Nursing Amount of Assist Needed 1 Person Assist Discharge Recommendations PT Discharge Recommendations Home with 02/10 Assist,Home Health Transportation Needs at Discharge Private Vehicle,Wheelchair/ Cabulance
--- NOTE | 2019-12-20 15:16 | PC.NURSE ---
Discharge instructions and home care handouts reviewed with patient. Patient showered and dressed and sitting up waiting for her friend Antoine to arrive to take her home with her electric wheelchair and van. Aqu[employer]el intact. Patient states understanding of discharge instructions and has no further questions or concerns at this time. Patient confirms she has a follow up appointment scheduled. Call light within [facility] evening shift RN to assume care while patient waiting for her ride.
--- NOTE | 2019-12-20 15:59 | PC.NURSE ---
pt used her own wheelchair and got escorted by TOOL KEEPER downstairs. all belongings returned to patient. dc teaching provided by day shift nurse. paper work with patient.
== END 2019-12-20 15:58 | disposition home or self-care (01) ==
LOC: OR 12-22 07:35 → AC 12-22 07:35
PROVIDERS: Admitting Provider Orthopaedic Surgery; PCP Physician Assistant Medical; Referring Provider Physician Assistant Medical; Visit Provider Orthopaedic Surgery
PROC: 0SRD0JZ Replacement of Left Knee Joint with Synthetic Substitute, Open Approach (ICD-10-PCS; CPT 27447; principal; 2019-12-18 12:45)
DX: M17.12 Unilateral primary osteoarthritis, left knee (principal); K21.9 Gastro-esophageal reflux disease without esophagitis; E66.9 Obesity, unspecified; Z68.31 Body mass index [BMI] 31.0-31.9, adult
CPT/HCPCS: 27447; 36415; 64450; 73560; 85014; 85018; 94760; 97162; 97530; C1776; G0378; C9290; J0690; J1170; J2250; J2405; J2704; J3010

== ENCOUNTER → 2021-04-11 12:24 | Outpatient (CLI) | payer MEDICARE, SELFPAY ==
[2019-12-18 17:12] VITALS: BMI 31.7
--- NOTE | 2021-04-11 | DI.ECHO.S_ITS ---
[facility]---------+ [facility] +---------+ : : [address] : [place] : : : : [id number] : : : : Phone: [phone]+ Echocardiogram Report + + :Name: GUS BELTRAN Study Date: 04/11/2021 Height: 68 in : :[facility] ReadingLocation: Weight: 214 lb : : Gender: Female BSA: 2.1 m2 : :: 1940 Age: 80 yrs BP: 129/71 mmHg: :Reason For Study: Atrial fibrillation : :Ordering Physician: Shubham : :Tyshawn Carpio Performed By: Pranav Marquis : :Referring: SHUBHAM CARPIO : + + Interpretation Summary 1) Normal left ventricular size, wall motion, and systolic function (EF 60- 65%). 2) Normal right ventricular size and function. 3) No significant valvular abnormalities. 4) No prior Echo available for comparison. Procedure: A two-dimensional transthoracic echocardiogram with color flow and Doppler was performed. The study quality was technically adequate. There is no prior echocardiogram noted for this patient. Technically difficult aquisition on apical window. The patient was in normal sinus rhythm during the exam. Left Ventricle: The left ventricle is normal in size. There is borderline concentric left ventricular hypertrophy. Left ventricular systolic function appears normal without focal wall motion abnormalities. The ejection fraction is estimated to be 60-65%. Diastolic parameters suggest probable normal left ventricular diastolic function and normal filling pressures. Right Ventricle: The right ventricle is normal in size and function. Atria: The left atrial size is normal. The right atrium is mild to moderately dilated. There is no Doppler evidence for an interatrial shunt. Mitral Valve: The mitral valve is normal. There is trace mitral regurgitation. Aortic Valve: The aortic valve is trileaflet. The aortic valve opens well. There is no aortic valve stenosis. There is trace aortic regurgitation. Tricuspid Valve: The tricuspid valve is normal. There is mild tricuspid regurgitation. The right ventricular systolic pressure is estimated to be at least 35 mmHg based on an estimated right atrial pressure of 3 mm Hg. Pulmonic Valve: The pulmonic valve leaflets are thin and pliable; valve motion is normal. There is trace pulmonic regurgitation. Great Vessels: The aortic root is normal size. The ascending aorta is normal in size. The aortic arch is normal in size. The IVC is of normal diameter and collapses greater than 50% with a sniff. This suggests a low right atrial pressure of 3 mm Hg. Pericardium/ Pleura There is no pericardial effusion. There is an anterior echo-free space consistent with a fat pad. There is no pleural effusion. MMode/2D Measurements & Calculations LVIDd: 4.4 cm LVOT diam: 2.2 cm LVIDs: 2.6 cm Ao root diam: 3.0 cm FS: 42.4 % asc Aorta Diam: 3.3 cm IVSd: 1.1 cm Ao Arch Diam (Prox Trans): 2.9 cm LVPWd: 1.3 cm LV reyes. diameter/BSA (cm/m^2): 2.1 LV sys. diameter/BSA (cm/m^2): 1.2 LA A2 area: 16.9 cm2 RA long axis: 5.0 cm LA A4 area: 19.0 cm2 RA area: 20.9 cm2 LA length (vol): 5.5 cm RA vol: 73.8 ml LA vol: 49.6 ml RA : 35.1 ml/m2 LA vol index: 23.6 ml/m2 RVD1 (basal): 3.1 cm TAPSE: 2.0 cm Doppler Measurements & Calculations Ao V2 max: 109.6 cm/sec LVOT Max Jaylon: 92.2 cm/sec Ao V2 mean: 75.6 cm/sec LV V1 max P.4 mmHg Ao max P.8 mmHg LV V1 VTI: 21.4 cm Ao mean P.5 mmHg GUILLERMO(I,D): 3.2 cm2 Ao V2 VTI: 25.6 cm GUILLERMO(V,D): 3.2 cm2 sev ratio: 0.84 GUILLERMO indexed to BSA (cm^2/m^2): 1.5 MV E max jaylon: 62.9 cm/sec TR max jaylon: 283.7 cm/sec MV A max jaylon: 75.0 cm/sec TR max P.2 mmHg MV E/A: 0.84 Med Peak E' Jaylon: 4.7 cm/sec E/E' med: 13.3 Lat Peak E' Jaylon: 6.3 cm/sec E/E' lat: 10.0 E/e' average: 11.6 MV dec time: 0.24 sec SV(LVOT): 80.6 ml Reading Physician:02:39 PM
== END ==
PROVIDERS: PCP Physician Assistant Medical; Referring Provider Internal Medicine Cardiovascular Disease; Visit Provider Internal Medicine Cardiovascular Disease
DX: I07.1 Rheumatic tricuspid insufficiency (principal); I48.0 Paroxysmal atrial fibrillation
CPT/HCPCS: 93306

== ENCOUNTER → 2022-11-18 13:46 | Outpatient (CLI) | payer MEDICARE, SELFPAY ==
[2019-12-18 17:12] VITALS: BMI 31.7
--- NOTE | 2022-11-18 | DI.MRI.S_ITS ---
PROCEDURE: MR SHOULDER RT WO CON INDICATIONS: ROTATOR CUFF TENDINITIS TECHNIQUE: Noncontrast oblique coronal T2 fast spin echo with fat saturation, oblique sagittal T1 spin echo and T2 fast spin echo with fat saturation, axial T1 spin echo and T2 fast spin echo with fat saturation through the shoulder. COMPARISON: [facility] [place], CR, XR SHOULDER 2+ VIEWS RIGHT, 11/07/2022, 10:25. FINDINGS: Image quality: Excellent. Rotator cuff: There is a large full-thickness tear involving the supraspinatus tendon and the majority of the anterior infraspinatus tendon measuring up to 2.6 cm in anterior-posterior dimension with proximal tendon retraction measuring up to 4.2 cm. There is mild atrophy and grade 2 fatty infiltration of the supraspinatus and infraspinatus muscles. The teres minor tendon is intact. There is mild subscapularis tendinosis and low-grade partial articular sided tearing at the superior insertion. Bones and bursae: No acute trabecular bone injury or fracture. The humeral head is high riding with narrowing of the acromiohumeral interval and remodeling of the inferior acromion. Generalized partial-thickness cartilage thinning irregularity is seen in the glenohumeral joint. There are moderate degenerative changes at the acromioclavicular joint with subchondral cystic changes and edema and marginal osteophyte formation. A small amount of fluid in the subacromial/subdeltoid bursa communicates with the glenohumeral joint space. Capsule and soft tissues: There is diffuse labral degeneration and chronic degenerative tearing. The proximal biceps long head tendon is not visualized, consistent with chronic tendon tearing and distal retraction. There is partial effacement of the fat in the rotator interval. Glenohumeral ligaments appear to be intact. IMPRESSION: 1. Full-thickness tearing of the supraspinatus tendon and the majority of the anterior infraspinatus tendon measuring up to 2.6 cm in anterior-posterior dimension with proximal tendon retraction measuring up to 4.2 cm. Mild atrophy and grade 2 fatty infiltration of the supraspinatus and infraspinatus muscles. Humeral head is high riding with narrowing of the acromiohumeral interval and chronic remodeling of the inferior acromion. 2. Mild tendinosis and low-grade partial articular sided tearing of the subscapularis tendon at the superior insertion. 3. Complete tearing distal retraction of the proximal biceps long head tendon. 4. Diffuse labral degeneration and chronic degenerative tearing. 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 5. Moderate acromioclavicular joint osteoarthrosis. 6. Small amount of fluid in the subacromial/subdeltoid bursa communicates with the glenohumeral joint space. Approved by: Simon Walton M.D. on 11/20/2022 at 11:17
== END ==
PROVIDERS: PCP Physician Assistant Medical; Referring Provider Orthopaedic Surgery; Visit Provider Orthopaedic Surgery
DX: M75.121 Complete rotator cuff tear or rupture of right shoulder, not specified as traumatic (principal); S46.111A Strain of muscle, fascia and tendon of long head of biceps, right arm, initial encounter; M75.81 Other shoulder lesions, right shoulder; M94.211 Chondromalacia, right shoulder; M19.011 Primary osteoarthritis, right shoulder
CPT/HCPCS: 73221

== ENCOUNTER 2022-12-11 01:45 | Inpatient (IN) | payer MEDICARE, SELFPAY ==
[2019-12-18 17:12] VITALS: BMI 31.7
[2022-12-11] VITALS (19 sets, daily range): BP systolic 126–180; BP diastolic 61–83; PULSE 61–76; RESP 16–29; TEMP 36.4–37.4; O2SAT 91–98; BMI 33.4
--- NOTE | 2022-12-11 01:52 | ED.ABDPAIN ---
HPI - Abdominal Pain General Chief Complaint: Abdominal Pain Stated Complaint: ABD Pain Time Seen by Provider: 12/11/22 01:45 History of Present Illness HPI narrative: Patient is an 82-year-old female who presents with sudden onset of abdominal pain and nausea and vomiting. She reports the pain is epigastric and upper abdominal area in nature. No specific right upper quadrant pain. She denies any radiation to her chest or palpitations. She reports that she felt well earlier in the day she and her friend went to play. She does admit to drinking alcohol with 1 particular friend however he reports she did not have alcohol at dinner night. She has had normal bowel movements. She received fentanyl with EMS which has helped some but she still is in quite a bit of pain. Related Data Previous Rx's Medication Instructions Recorded acetaminophen 325 mg tablet 650 mg PO TID #40 tabs 12/19/19 aspirin 81 mg tablet,delayed 81 mg PO BID #40 tabs 12/19/19 release docusate sodium 100 mg capsule 100 mg PO BID #40 caps 12/19/19 (DOK) ibuprofen 400 mg tablet 400 mg PO Q4HR #40 tabs 12/19/19 oxycodone 5 mg tablet 5 mg PO Q3HR PRN Pain, Moderate 12/19/19 (4-6) #1 tab diazepam 5 mg tablet 5 mg PO Q6HR PRN Muscle Spasms #30 12/20/19 tabs ondansetron 4 mg disintegrating 4 mg PO Q4HR PRN Nausea #10 tabs 12/20/19 tablet Allergies Allergy/AdvReac Type Severity Reaction Status Date / Time adhesive tape Allergy Intermediate Rash - Verified 12/15/19 13:40 Paper/silk tape ok Review of Systems Review of Systems ROS Unobtainable: All systems reviewed & are unremarkable except as noted in HPI and below Patient History Medical History Noe's esophagus Colitis Diverticulitis Eczema Meningioma (~2013) RBBB with left anterior fascicular block Surgical History History of bilateral hip arthroplasty History of esophagogastroduodenoscopy (EGD) (2019) History of hysterectomy Hx of appendectomy Hx of bilateral cataract extraction (2019) Social History household members: spouse and caregiver Smoking Status: Former smoker alcohol intake: current Smoking Status: Former smoker alcohol intake frequency: a few times a week Substance Use Type: does not use Exam Initial Vital Signs Initial Vital Signs: Vital Signs Pulse Rate 64 12/11/22 01:49 Respiratory Rate 25 H 12/11/22 01:49 Pulse Oximetry 96 12/11/22 01:49 GENERAL: Alert 82-year-old female appears uncomfortable HEENT: Head atraumatic,EOMI, pupils reactive, face symmetric, moist mucous membranes CARDIOVASCULAR: Regular rate and rhythm without murmurs, rubs or gallops. RESPIRATORY: Breath sounds equal bilaterally, no wheezes rales or rhonchi. ABDOMEN: Soft, mild epigastric pain negative Oswald sign no guarding no rebound no lower abdominal pain no hernia EXTREMITIES: Normal range of motion, no clubbing or edema. Neurovascularly intact NEUROLOGICAL: Alert and oriented x4. SKIN: Warm, dry, no laceration, no petechiae, no rashes or lesions. Course Orders Ordered: ED Orders 12/11/22 01:51 Complete Blood Count AUTO DIFF Stat Comprehensive Metabolic Panel Stat Lactate (Lactic Acid) Stat Lipase Stat 12/11/22 01:53 CT abdomen pelvis w con Stat EKG-12 Lead Stat 12/11/22 02:55 Urine Culture Stat Urine Microscopic Stat Hydromorphone HCl (Hydromorphone 0.5 Mg Inj) 0.5 mg IV Q2H PRN PRN Reason: Pain, Severe (7-10) Last Admin: 12/11/22 05:48 Dose: 0.5 mg Documented By: Sodium Chloride (Normal Saline 0.9%) 1,000 mls @ 150 mls/hr IV CONT DOMINIC Last Admin: 12/11/22 05:48 Dose: 150 mls/hr Documented By: Naloxone HCl (Naloxone 0.4 Mg/Ml Vial) 0.2 mg IV Q2MIN PRN PRN Reason: Opiate Reversal Ondansetron HCl (Ondansetron 4 Mg/2 Ml Inj) 4 mg IV Q8HR PRN PRN Reason: Nausea And Vomiting Ondansetron HCl (Ondansetron 4 Mg Odt) 4 mg PO Q8HR PRN PRN Reason: Nausea And Vomiting Oxycodone HCl (Oxycodone Ir 5 Mg Tablet) 5 mg PO Q3H PRN PRN Reason: Pain, Moderate (4-6) Promethazine HCl (Promethazine 12.5 Mg Supp) 12.[address] Q6HR PRN PRN Reason: Nausea And Vomiting Discontinued Medications Sodium Chloride (Normal Saline 0.9%) 1,000 mls @ 1,000 mls/hr IV BOLUS ONE Stop: 12/11/22 03:37 Last Infusion: 12/11/22 04:50 Dose: 0 mls/hr Documented By: Admin: 12/11/22 02:47 Dose: 1,000 mls/hr Documented By: ROSALIO Morphine Sulfate (Morphine 2 Mg/Ml Inj) 2 mg IV NOW ONE Stop: 12/11/22 01:54 Last Admin: 12/11/22 02:00 Dose: 2 mg Documented By: ROSALIO Ondansetron HCl (Ondansetron 4 Mg/2 Ml Inj) 4 mg IV NOW ONE Stop: 12/11/22 01:54 Last Admin: 12/11/22 01:59 Dose: 4 mg Documented By: ROSALIO Vital Signs Vital signs: Vital Signs - 8 hr 12/11/22 01:55 12/11/22 01:49 12/11/22 02:19 Temperature 97.5 F L Pulse Rate 64 64 Respiratory Rate 18 25 H Blood Pressure 180/82 H 149/83 H Pulse Oximetry 97 96 Oxygen Delivery Method Room Air 12/11/22 02:19 12/11/22 02:53 12/11/22 03:00 Temperature Pulse Rate 61 67 Respiratory Rate 17 Blood Pressure 164/69 H Pulse Oximetry 96 95 Oxygen Delivery Method 12/11/22 03:01 12/11/22 03:01 12/11/22 03:30 Temperature Pulse Rate 66 Respiratory Rate 26 H Blood Pressure 168/80 H 166/74 H Pulse Oximetry 97 Oxygen Delivery Method 12/11/22 03:30 12/11/22 04:00 12/11/22 04:01 Temperature Pulse Rate 70 68 Respiratory Rate 29 H 28 H Blood Pressure 171/76 H Pulse Oximetry 93 94 Oxygen Delivery Method MDM - Abdominal Pain Lab Data 12/11/22 01:51 12/11/22 01:51 Labs: Lab Results 12/11/22 12/11/22 12/11/22 Range/Units 01:51 01:51 01:51 WBC 8.2 (4.5-11.0) X10^3/uL RBC 4.20 (4.0-5.2) X10^6/uL Hgb 12.8 (12.0-16.0) g/dL Hct 38.3 (36-46) % MCV 91.2 (80-100) fL MCH 30.5 (26-34) PG MCHC 33.5 (30-36) % RDW 14.5 (11.6-14.8) % Plt Count 275 (150-400) X10^3/uL Neut % (Auto) 63.3 (50-75) % Lymph % (Auto) 28.0 (25-40) % [place] % (Auto) 5.5 (3-14) % Eos % (Auto) 2.6 (2-4) % Baso % (Auto) 0.6 (0-2) % Neut # (Auto) 5200 (7163-0555) /uL Lymph # (Auto) 2300 (3000-7823) /uL [place] # (Auto) 400 (0-900) /uL Eos # (Auto) 200 (0-450) /uL Baso # (Auto) 0 (0-100) /uL Sodium 139 (137-145) mmol/L Potassium 3.5 (3.4-5.1) mmol/L Chloride 105 (98-107) mmol/L Carbon Dioxide 24 (22-32) mmol/L BUN 22 H (7-17) mg/dL Creatinine 0.76 (0.52-1.04) mg/dL Estimated GFR > 60 (>60) mL/min BUN/Creatinine Ratio 28.9 H (6-22) Glucose 133 H (80-110) mg/dL Lactate 2.0 (0.7-2.1) mmol/L Calcium 10.1 (8.4-10.2) mg/dL Total Bilirubin 0.6 (0.2-1.3) mg/dL AST 91 H (14-36) IU/L ALT 40 H (<35) IU/L Alkaline Phosphatase 106 (38-126) U/L Total Protein 7.5 (6.3-8.2) g/dL Albumin 4.2 (3.5-5.0) g/dL Globulin 3.3 (1.7-4.1) g/dL Albumin/Globulin Ratio 1.3 (1.0-2.8) Lipase 21240 H (23-300) U/L Urine RBC (0-5/HPF) Urine WBC (0-5/HPF) Ur Squamous Epith Cells (0-5/HPF) Urine Bacteria (None) Ur Culture Indicated? 12/11/22 Range/Units 02:55 WBC (4.5-11.0) X10^3/uL RBC (4.0-5.2) X10^6/uL Hgb (12.0-16.0) g/dL Hct (36-46) % MCV (80-100) fL MCH (26-34) PG MCHC (30-36) % RDW (11.6-14.8) % Plt Count (150-400) X10^3/uL Neut % (Auto) (50-75) % Lymph % (Auto) (25-40) % [place] % (Auto) (3-14) % Eos % (Auto) (2-4) % Baso % (Auto) (0-2) % Neut # (Auto) (4302-2627) /uL Lymph # (Auto) (7469-8054) /uL [place] # (Auto) (0-900) /uL Eos # (Auto) (0-450) /uL Baso # (Auto) (0-100) /uL Sodium (137-145) mmol/L Potassium (3.4-5.1) mmol/L Chloride (98-107) mmol/L Carbon Dioxide (22-32) mmol/L BUN (7-17) mg/dL Creatinine (0.52-1.04) mg/dL Estimated GFR (>60) mL/min BUN/Creatinine Ratio (6-22) Glucose (80-110) mg/dL Lactate (0.7-2.1) mmol/L Calcium (8.4-10.2) mg/dL Total Bilirubin (0.2-1.3) mg/dL AST (14-36) IU/L ALT (<35) IU/L Alkaline Phosphatase (38-126) U/L Total Protein (6.3-8.2) g/dL Albumin (3.5-5.0) g/dL Globulin (1.7-4.1) g/dL Albumin/Globulin Ratio (1.0-2.8) Lipase (23-300) U/L Urine RBC None seen (0-5/HPF) Urine WBC 30-100/hpf H (0-5/HPF) Ur Squamous Epith Cells 0-1 /hpf (0-5/HPF) Urine Bacteria Many (>30) H (None) Ur Culture Indicated? Specimen cultured Point of care testing: Urine Dip Bedside Urine Glucose Negative Bedside Urine Bilirubin - Negative Bedside Urine Ketone - Negative Urine Specific [place] 1.02 Bedside Urine Occult Blood +/- Bedside Urine pH 6 Bedside Urine Protein - Negative Bedside Urine Urobilinogen - Negative Bedside Urine Nitrite + Positive Bedside Urine Leukocytes - Negative Esterase Imaging Data CT scan - abdomen/pelvis: Radiologist's Impression: Preliminary report: Mild acute pancreatitis. Distended gallbladder with mildly edematous wall or pericholecystic fluid. No CT evidence of cholelithiasis. ECG Data Interpretation: Sinus rhythm with PVCs right bundle-branch block noted new from 2007 artifact noted no obvious ST changes MDM Narrative Medical decision making narrative: Patient 82-year-old female with history of drinking alcohol presenting today with abdominal pain and nausea. She appears to be in quite a bit of pain she was given morphine and Zofran which seemed to help a lot. Lipase returned at 31,[address] does not show any evidence of necrotizing pancreatitis. Does show a distended gallbladder without evidence of cholelithiasis. Bilirubin is within normal limits liver enzymes are slightly elevated. Unlikely to be choledocholithiasis with pancreatitis. I suspect alcohol induced pancreatitis. No real right upper quadrant pain but having epigastric and periumbilical pain. Pain is well-controlled. Other blood work has been reviewed and is negative. Dr. Hayes accepts patient. Discharge Plan Departure Patient Disposition: Admitted As Inpatient Clinical Impression: Pancreatitis Admit Date/Time: 12/11/22 04:28 Admit Provider: Jaron Hayes
--- NOTE | 2022-12-11 01:53 | DI.CT.S_ITS ---
PROCEDURE: CT ABDOMEN PELVIS W CON INDICATIONS: Abdominal pain with nausea. TECHNIQUE: After the administration of intravenous contrast, axial sections acquired from the lung bases to the pubic symphysis. Coronal and sagittal reformats were performed. For radiation dose reduction, the following was used: automated exposure control, adjustment of mA and/or kV according to patient size. COMPARISON: None. FINDINGS: Image quality: Excellent. Lung bases: Dependent atelectasis in posterior aspect of bilateral lung bases are seen. Heart: Heart size is mildly enlarged, no pericardial effusion. ABDOMEN: Liver: Tiny well-circumscribed hypodensities are seen in right and left hepatic lobes measures up to 9 mm in size series 2, image 33 and are too small to adequately characterize. Gallbladder: Gallbladder is distended. With mild wall enhancement and edema. No calcified gallstone is seen. Biliary ducts: Unremarkable. Pancreas: Mild peripancreatic fat stranding is seen. Mild heterogeneous enhancement of pancreas is also noted within large mint of pancreatic head and uncinate process. No discrete pancreatic mass or peripancreatic fluid. Spleen: Unremarkable. Adrenal Glands: Unremarkable. Kidneys and Ureters: 6.4 x 6.3 cm simple appearing cyst in upper pole right kidney is seen. 1 mm right renal cortical cyst is also noted. Exophytic left renal cyst measures 1.4 cm in size in anterior cortex of midpole left kidney is seen. No hydronephrosis or hydroureter. Stomach and Bowel: There is no bowel obstruction. No abnormal bowel wall thickening or mesenteric fat stranding. Appendix is visualized in right lower quadrant and is normal in size and appearance. No abscess collection. Peritoneum: No abnormal intraperitoneal fluid. No free air. Ventral Wall: Small umbilical hernia is seen containing fat only. Abdominal Nodes: No retroperitoneal or mesenteric adenopathy by size criteria. Vessels: Aorta and inferior vena cava are normal in size. PELVIS: Pelvic Organs: Unremarkable. Bladder: Unremarkable. Pelvic Nodes: No enlarged lymph nodes. Miscellaneous: No hernias are seen. Bones: Patient is status post bilateral total hip arthroplasty with significant beam hardening artifacts. No acute pelvic or hip fracture. No hip dislocation. Degenerative disc disease throughout lower thoracic and lumbar spine is seen. No acute vertebral body compression fracture. No suspicious bony lesions. IMPRESSION: 1. Finding is concerning for acute pancreatitis. No definite pancreatic lesion. No peripancreatic fluid collection. 2. Distended gallbladder without calcified gallstones. Questionable gallbladder wall thickening or edema. No significant biliary ductal dilatation. Early acute cholecystitis cannot be excluded. Clinical correlation is recommended. 3. Likely tiny cysts in right and left hepatic lobes measures less than 1 cm in size. 4. No bowel obstruction or abnormal bowel wall thickening. Normal appendix. No free fluid or free air. No abscess collection. No significant discrepancies from preliminary reading. Dictated by: Hussein Benavidez M.D. on 12/11/2022 at 8:01 Approved by: Hussein Benavidez M.D. on 12/11/2022 at 8:06
[2022-12-11] MEDS: ONDANSETRON 4 MG/2 ML INJ IV (01:59)
[2022-12-11] MEDS: MORPHINE 2 MG/ML INJ IV (02:00)
[2022-12-11 02:04] LABS: Add Manual Diff / Slide Review NO; Basophils Absolute Auto 0 /uL (0-100); Basophils Percent Auto 0.6 % (0-2); Eosinophils Absolute Auto 200 /uL (0-450); Eosinophils Percent Auto 2.6 % (2-4); Hematocrit 38.3 % (36-46); Hemoglobin 12.8 g/dL (12.0-16.0); Lymphocytes Absolute Auto 2300 /uL (1100-4500); Mean Corpuscular HGB Conc 33.5 % (30-36); Mean Corpuscular Hemoglobin 30.5 PG (26-34); Mean Corpuscular Volume 91.2 fL (80-100); Monocytes Absolute Auto 400 /uL (0-900); Monocytes Percent Auto 5.5 % (3-14); Neutrophils Absolute Auto 5200 /uL (1500-7000); Neutrophils Percent Auto 63.3 % (50-75); Platelet Count 275 X10^3/uL (150-400); Red Cell Distribution Width 14.5 % (11.6-14.8); White Blood Cell Count 8.2 X10^3/uL (4.5-11.0)
[2022-12-11 02:13] LABS: Alanine Aminotransferase 40 IU/L (<35); Albumin 4.2 g/dL (3.5-5.0); Albumin Globulin Ratio 1.3 (1.0-2.8); Alkaline Phosphatase 106 U/L (38-126); Aspartate Aminotransferase 91 IU/L (14-36); BUN Creatinine Ratio 28.9 (6-22); Bilirubin Total 0.6 mg/dL (0.2-1.3); Blood Urea Nitrogen 22 mg/dL (7-17); Calcium 10.1 mg/dL (8.4-10.2); Carbon Dioxide 24 mmol/L (22-32); Chloride 105 mmol/L (98-107); Estimated Glomerular Filt Rate > 60 mL/min (>60); Globulin 3.3 g/dL (1.7-4.1); Glucose 133 mg/dL (80-110); Potassium 3.5 mmol/L (3.4-5.1); Sodium 139 mmol/L (137-145); Total Protein 7.5 g/dL (6.3-8.2)
[2022-12-11 02:29] LABS: HEMOLYSIS 16 (0-50)
[2022-12-11 02:31] LABS: Lipase 31559 U/L (23-300)
[2022-12-11] MEDS: SODIUM CHLORIDE 0.9% 1,000 ML 1000 ML IV (02:47)
[2022-12-11 03:04] LABS: RBC Urine None Seen (0-5/HPF)
[2022-12-11 03:05] LABS: Bacteria Urine Many (>30); Culture Indicated Urine Specimen Cultured; Squamous Epithelial Cell Urine 0-1 /HPF (0-5/HPF); WBC Urine 30-100/HPF (0-5/HPF)
[2022-12-11] MEDS: HYDROMORPHONE 0.5 MG INJ IV ×4 (05:48→21:48)
[2022-12-11] MEDS: SODIUM CHLORIDE 0.9% 1,000 ML 150 ML IV ×3 (05:48→19:59)
--- NOTE | 2022-12-11 07:19 | PM.HP.1 ---
History of Present Illness History of Present Illness Date Patient Seen: 12/11/22 Chief complaint: ABD Pain Narrative: 82 y/o presented to ED with epigastric and hypogastric pain, nausea, and diagnosed with acute pancreatitis. At presentation most likely cause is alcohol. She drinks wine with her friends and prior to this episode she had few glasses. [facility] Medical History (Updated 12/11/22 @ 07:43 by Jaron Hayes MD) Arthritis Noe's esophagus Colitis Diverticulitis Eczema GERD (gastroesophageal reflux disease) HTN (hypertension) Meningioma (~2013) RBBB with left anterior fascicular block Surgical History History of bilateral hip arthroplasty History of esophagogastroduodenoscopy (EGD) (2019) History of hysterectomy Hx of appendectomy Hx of bilateral cataract extraction (2019) Social History household members: spouse and caregiver Smoking Status: Former smoker alcohol intake: current Meds Home Medications and Allergies Home Medications Medication Instructions Recorded Confirmed Type ibuprofen 400 mg tablet (IBU) 400 mg PO Q4HR PRN Pain, Mild 12/11/22 12/11/22 History metoprolol succinate 25 mg 25 mg PO DAILY 12/11/22 12/11/22 History tablet,extended release 24 hr (Toprol XL) trospium 20 mg tablet 20 mg PO BID 12/11/22 12/11/22 History Allergies Allergy/AdvReac Type Severity Reaction Status Date / Time adhesive tape Allergy Intermediate Rash - Verified 12/15/19 13:40 Paper/silk tape ok Review of Systems Constitutional Comments: no fever or chills Cardiovascular Comments: w/o chest pain Respiratory Comments: w/o shortness of breath Gastrointestinal Comments: abdominal pain, radiating to back, 510 - 1010, nausea, vomited once in the ED Genitourinary Comments: w/o dysuria Exam Vital Signs (past 8 hours): - 12/11/22 01:55 12/11/22 01:49 12/11/22 02:19 Temperature 97.5 F L Pulse Rate 64 64 Respiratory Rate 18 25 H Blood Pressure 180/82 H 149/83 H Pulse Oximetry 97 96 Oxygen Delivery Method Room Air Oxygen Flow Rate 12/11/22 02:19 12/11/22 02:53 12/11/22 03:00 Temperature Pulse Rate 61 67 Respiratory Rate 17 Blood Pressure 164/69 H Pulse Oximetry 96 95 Oxygen Delivery Method Oxygen Flow Rate 12/11/22 03:01 12/11/22 03:01 12/11/22 03:30 Temperature Pulse Rate 66 Respiratory Rate 26 H Blood Pressure 168/80 H 166/74 H Pulse Oximetry 97 Oxygen Delivery Method Oxygen Flow Rate 12/11/22 03:30 12/11/22 04:00 12/11/22 04:01 Temperature Pulse Rate 70 68 Respiratory Rate 29 H 28 H Blood Pressure 171/76 H Pulse Oximetry 93 94 Oxygen Delivery Method Oxygen Flow Rate 12/11/22 04:30 12/11/22 04:31 12/11/22 04:31 Temperature Pulse Rate 69 68 Respiratory Rate 18 21 Blood Pressure 177/78 H Pulse Oximetry 96 96 Oxygen Delivery Method Oxygen Flow Rate 12/11/22 05:05 Temperature 98.3 F Pulse Rate 74 Respiratory Rate 16 Blood Pressure 160/78 H Pulse Oximetry 98 Oxygen Delivery Method Oxygen Flow Rate 0 Oxygen Delivery Method Room Air Oxygen Flow Rate 0 Const Other: Laying in bed in no distress Eyes Other: eomi, reactive pupils Resp Other: CTA Cardio Other: RRR GI Other: tender abdomen, minimally distended Skin Other: not jaundiced Neuro Other: w/o deficits Extrem Other: w/o swelling Psych Other: lucid, appropriate mood Objective ECG Impression: RBBB, NSR Labs 12/11/22 01:51 12/11/22 01:51 Labs: Laboratory Results - last 24 hr 12/11/22 12/11/22 12/11/22 01:51 01:51 01:51 WBC 8.2 RBC 4.20 Hgb 12.8 Hct 38.3 MCV 91.2 MCH 30.5 MCHC 33.5 RDW 14.5 Plt Count 275 Neut % (Auto) 63.3 Lymph % (Auto) 28.0 [place] % (Auto) 5.5 Eos % (Auto) 2.6 Baso % (Auto) 0.6 Neut # (Auto) 5200 Lymph # (Auto) 2300 [place] # (Auto) 400 Eos # (Auto) 200 Baso # (Auto) 0 Sodium 139 Potassium 3.5 Chloride 105 Carbon Dioxide 24 BUN 22 H Creatinine 0.76 Estimated GFR > 60 BUN/Creatinine Ratio 28.9 H Glucose 133 H Lactate 2.0 Calcium 10.1 Total Bilirubin 0.6 AST 91 H ALT 40 H Alkaline Phosphatase 106 Total Protein 7.5 Albumin 4.2 Globulin 3.3 Albumin/Globulin Ratio 1.3 Lipase 90370 H Urine RBC Urine WBC Ur Squamous Epith Cells Urine Bacteria Ur Culture Indicated? 12/11/22 02:55 WBC RBC Hgb Hct MCV MCH MCHC RDW Plt Count Neut % (Auto) Lymph % (Auto) [place] % (Auto) Eos % (Auto) Baso % (Auto) Neut # (Auto) Lymph # (Auto) [place] # (Auto) Eos # (Auto) Baso # (Auto) Sodium Potassium Chloride Carbon Dioxide BUN Creatinine Estimated GFR BUN/Creatinine Ratio Glucose Lactate Calcium Total Bilirubin AST ALT Alkaline Phosphatase Total Protein Albumin Globulin Albumin/Globulin Ratio Lipase Urine RBC None seen Urine WBC 30-100/hpf H Ur Squamous Epith Cells 0-1 /hpf Urine Bacteria Many (>30) H Ur Culture Indicated? Specimen cultured Assessment & Plan Assessment and plan (1) Acute alcoholic pancreatitis: Status: Acute Plan: Advised to completely stop drinking. IVFs, antiemetics, pain management, NPO except for meds. With less nausea and pain, clear liquid trial tonight or tomorrow (2) GERD (gastroesophageal reflux disease): Status: Acute Plan: Protonix IV, has Noe's esophagus (3) Noe's esophagus: Status: Acute (4) Arthritis: Status: Acute Plan: at home on NSAIDs, tylenol, oxycodone for arthralgia - adjusted pain management (5) HTN (hypertension): Status: Acute Plan: Metoprolol, prn hydralazine Quality VTE Deep Vein Thrombosis/Pulmonary Embolism Present on Admission: No
[2022-12-11] MEDS: METOPROLOL ER 25 MG TABLET PO (09:18)
[2022-12-11] MEDS: PANTOPRAZOLE 40 MG VIAL IV (09:18)
[2022-12-11] MEDS: PIPERACILLIN/TAZO 3.375 GM in SODIUM CHLORIDE 0.9% 100 ML IV ×2 (12:00→19:59)
[2022-12-11 12:07] LABS: Cholesterol 189 mg/dL (140-199); HDL Cholesterol 46 mg/dL (40-60); LDL Cholesterol Calculated 121 mg/dL (<100); Triglycerides 111 mg/dL (35-150)
[2022-12-11 12:08] LABS: Alanine Aminotransferase 59 IU/L (<35); Albumin 3.8 g/dL (3.5-5.0); Albumin Globulin Ratio 1.3 (1.0-2.8); Alkaline Phosphatase 98 U/L (38-126); Aspartate Aminotransferase 70 IU/L (14-36); BUN Creatinine Ratio 24.6 (6-22); Bilirubin Total 0.6 mg/dL (0.2-1.3); Blood Urea Nitrogen 15 mg/dL (7-17); Calcium 9.4 mg/dL (8.4-10.2); Carbon Dioxide 24 mmol/L (22-32); Chloride 107 mmol/L (98-107); Estimated Glomerular Filt Rate > 60 mL/min (>60); Glucose 115 mg/dL (80-110); HEMOLYSIS < 15 (0-50); Potassium 4.1 mmol/L (3.4-5.1); Sodium 137 mmol/L (137-145); Total Protein 6.8 g/dL (6.3-8.2)
--- NOTE | 2022-12-11 12:08 | CM.DANOTE ---
Initial DCP Assessment Note Reviewed EMR for medical status and initial anticipated d/c needs. Met with pt at bedside to introduce self and role. Pt found to be alert, oriented, expresssing feeling much improved since admission. Payor: Medicare PCP: Joycelyn Padgett Pt is a 82 year-old F admitted for sudden onset abdominal pain, nausea and vomiting. ED evaluation demonstrated what they think is pancreatitis, further w/u being done today with a MRI to rule-out gallbladder as primary source of pain/inflammation. Pt is , [employer] updated the EMR demographics. She states that she has 3-adult children, none of whom are local. She does have several supportive friends that she can depend on for further OP support and transport home. DCP will continue to follow for d/c home needs. Discharge Planning/Care Management CM Discharge Assessment Start: 12/11/22 11:35 Freq: Status: Active Protocol: Document 12/11/22 11:35 DPL (Rec: 12/11/22 12:08 DPL [email or web address]) Discharge Planning Assessment Assigned Video Manager MEMO Lopez Advance Directives? Yes: advance directive Advance Directives on File Yes History Provided By Patient,Medical Record Expected Length of Stay 2 Has Patient been admitted in last 30 No days? Prior Living Arrangements House Household Members spouse,caregiver Type of transporation used prior to Drives own vehicle admit Independent with ADL's Yes Is patient alert and oriented? Yes Comment N/A Caregiver for Another No Comment N/A Comment No anticipated d/c home needs identified at this time. Barriers to Discharge No Discharge Plan Home Transportation Arrangement Friend will transport. Referrals Initiated None needed Inpatient Status as of 12/10/22 Whiteboard Updated in Patient Room with Yes name and ext. # of Video Manager Review Status In Process Please Provide Date Initial DC 12/11/22 Assessment Was Performed
--- NOTE | 2022-12-11 14:10 | PM.HP.1 ---
History of Present Illness History of Present Illness Date Patient Seen: 12/11/22 Time Patient Seen: 11:00 Chief complaint: ABD Pain Narrative: 82 y/o with PMH of HTN, diverticulitis, meningioma that presented to ED with epigastric and hypogastric pain, nausea, and NBNB emesis x1. She was admitted by telehospitalist service overnight for acute pancreatitis with lipase of >30,000. She reports acute onset of periumbilical and epigastric pain starting at midnight. She drinks a couple of times per week, last drink was 2 days ago. Yesterday evening she ate out and had a large meal. Pain is sharp, associated with nausea and NBNB emesis x1. She feels a bit better after pain medication and nausea medication this morning, but has no appetite and is not thirsty. No fever or chills recently. CT scan showed dilated gallbladder, but no obvious stones. There is possible mild GBWT and initially radiology report read as a duodenal diverticulum. Awaiting callback from radiologist for further discussion. [facility] Medical History Arthritis Noe's esophagus Colitis Diverticulitis Eczema GERD (gastroesophageal reflux disease) HTN (hypertension) Meningioma (~2013) RBBB with left anterior fascicular block Surgical History History of bilateral hip arthroplasty History of esophagogastroduodenoscopy (EGD) (2019) History of hysterectomy Hx of appendectomy Hx of bilateral cataract extraction (2019) Social History household members: spouse and caregiver Smoking Status: Former smoker alcohol intake: current Meds Home Medications and Allergies Home Medications Medication Instructions Recorded Confirmed Type ibuprofen 400 mg tablet (IBU) 400 mg PO Q4HR PRN Pain, Mild 12/11/22 12/11/22 History metoprolol succinate 25 mg 25 mg PO DAILY 12/11/22 12/11/22 History tablet,extended release 24 hr (Toprol XL) trospium 20 mg tablet 20 mg PO BID 12/11/22 12/11/22 History Allergies Allergy/AdvReac Type Severity Reaction Status Date / Time adhesive tape Allergy Intermediate Rash - Verified 12/15/19 13:40 Paper/silk tape ok Review of Systems Review of Systems Narrative: All other systems reviewed with the patient and are negative unless otherwise stated. Exam Vital Signs (past 8 hours): - 12/11/22 07:34 12/11/22 09:18 12/11/22 11:00 Temperature 98.8 F 98.7 F Pulse Rate 76 76 66 Respiratory Rate 18 18 Blood Pressure 132/64 132/64 126/61 Pulse Oximetry 91 95 Oxygen Flow Rate 0 0 12/11/22 13:44 Temperature Pulse Rate 66 Respiratory Rate Blood Pressure 126/61 Pulse Oximetry Oxygen Flow Rate Oxygen Delivery Method Room Air Oxygen Flow Rate 0 Narrative Exam Narrative: General:? Patient is well developed and well nourished, in no distress at this time but appears slightly uncomfortable and mildly ill due to pain. HEENT:? Normocephalic, atraumatic, extraocular muscles intact, oral pharynx is clear and mucous membranes are moist. Chest:? Normal AP diameter and contour without kyphoscoliosis, no tachypnea, equal chest rise bilaterally. Lungs:? CTA b/l no wheezing rhonchi or rales. Cardio:?RRR no m/r/g. Abdomen: soft, non-distended. Predominant periumbilical and RUQ tenderness. Negative chaves sign. Musculoskeletal:? Muscle strength and tone are equal within normal limits, no deformity. Extremities: No edema or joint effusions. No cyanosis or clubbing. Skin:? Pale,? Warm to touch,dry and intact without rashes, ulcerations or petechiae.? Neuro:? Alert and orientated x3,? sensation to touch intact in all extremities, no gross deficits noted of cranial nerves. Psych:? Patient has a well-kept appearance, appropriate affect, mental status attitude thought context and judgment are appropriate for age. Objective ECG Impression: Wide QRS rhythm with occasional premature ventricular complexes Right bundle branch block Left anterior fascicular block Bifascicular block Septal infarct , age undetermined As interpreted by me. Labs 12/11/22 01:51 12/11/22 11:43 Labs: Laboratory Results - last 24 hr 12/11/22 12/11/22 12/11/22 01:51 01:51 01:51 WBC 8.2 RBC 4.20 Hgb 12.8 Hct 38.3 MCV 91.2 MCH 30.5 MCHC 33.5 RDW 14.5 Plt Count 275 Neut % (Auto) 63.3 Lymph % (Auto) 28.0 [place] % (Auto) 5.5 Eos % (Auto) 2.6 Baso % (Auto) 0.6 Neut # (Auto) 5200 Lymph # (Auto) 2300 [place] # (Auto) 400 Eos # (Auto) 200 Baso # (Auto) 0 Sodium 139 Potassium 3.5 Chloride 105 Carbon Dioxide 24 BUN 22 H Creatinine 0.76 Estimated GFR > 60 BUN/Creatinine Ratio 28.9 H Glucose 133 H Lactate 2.0 Calcium 10.1 Total Bilirubin 0.6 AST 91 H ALT 40 H Alkaline Phosphatase 106 Total Protein 7.5 Albumin 4.2 Globulin 3.3 Albumin/Globulin Ratio 1.3 Triglycerides Cholesterol LDL Cholesterol, Calc HDL Cholesterol Lipase 35210 H Urine RBC Urine WBC Ur Squamous Epith Cells Urine Bacteria Ur Culture Indicated? 12/11/22 12/11/22 12/11/22 02:55 11:43 11:43 WBC RBC Hgb Hct MCV MCH MCHC RDW Plt Count Neut % (Auto) Lymph % (Auto) [place] % (Auto) Eos % (Auto) Baso % (Auto) Neut # (Auto) Lymph # (Auto) [place] # (Auto) Eos # (Auto) Baso # (Auto) Sodium 137 Potassium 4.1 Chloride 107 Carbon Dioxide 24 BUN 15 Creatinine 0.61 Estimated GFR > 60 BUN/Creatinine Ratio 24.6 H Glucose 115 H Lactate Calcium 9.4 Total Bilirubin 0.6 AST 70 H ALT 59 H Alkaline Phosphatase 98 Total Protein 6.8 Albumin 3.8 Globulin 3.0 Albumin/Globulin Ratio 1.3 Triglycerides 111 Cholesterol 189 LDL Cholesterol, Calc 121 H HDL Cholesterol 46 Lipase Urine RBC None seen Urine WBC 30-100/hpf H Ur Squamous Epith Cells 0-1 /hpf Urine Bacteria Many (>30) H Ur Culture Indicated? Specimen cultured Assessment & Plan Assessment & Plan narrative: 1. Acute pancreatitis, possible acute cholecystitis - etiology remains not entirely clear. Consider biliary given gallbladder appearance on CT, alcohol is possibility but seems less likely based on presentation and history, and consider contribution of duodenal diverticulum leading to obstruction. - discussed with radiologist personally, recommended further evaluation with MRCP. Ordered this study today. - Discussed case with surgery, may need to have cholecystectomy at some point but for now will await formal consultation until after MRCP results. - TG is 111. - with CT findings and RUQ pain on exam will cover for possible cholecystitis with zosyn. - NPO / IVF and bowel rest, advance diet as tolerated. - trend LFTs. 2. Possible acute cystitis - patient reports chronic over - active bladder symptoms, has not had UTI in the past. UTI will be adequately treated for now with above antibiotics for problem #1. Will see what grows from urine culture. 3. HTN - continue home metoprolol at 25 mg daily. 4. Over active bladder - continue home trospium. Code; Full. Surrogate is , advanced directive has been scanned. Dispo: Admitted inpatient, will probably discharge home with LOS anticipated at 3 days. I have utilized all available immediate resources to obtain, update, or review the patient's current medications. Additional history obtained from overnight hospitalist, discussion with surgeon and radiologist to obtain the above A&P. I have reviewed patient's EKG, abdominal imaging, labs and documentation personally. Quality VTE Deep Vein Thrombosis/Pulmonary Embolism Present on Admission: No
--- NOTE | 2022-12-11 14:40 | DI.MRI.S_ITS ---
PROCEDURE: MR ABDOMEN WO CON INDICATIONS: pancreatitis, ? biliary, etoh,or duodenal diverticulum TECHNIQUE: Coronal HASTE through the abdomen, axial 2-D FLASH in- and [id number], and breath-hold T2 FSE with fat saturation through the biliary system and pancreas. Oblique coronal and axial thin-slice HASTE, radial thick-slab HASTE centered on the extrahepatic bile ducts. COMPARISON: [facility], CT, CT ABDOMEN PELVIS W CON, 12/11/2022, 2:37. FINDINGS: Image quality: Excellent. Pancreas and biliary system: Mild edema near the head and body of the pancreas, (6/33). No loculated fluid collection. No pancreatic ductal dilatation. No pancreatic duct filling defect. No pancreatic cystic lesion. No biliary ductal dilatation. No filling defect in the CBD. The gallbladder is distended. There is pericholecystic fluid. No gallstones demonstrated. Other solid organs: Liver is normal in size. Hepatic steatosis. Small T2 hyperintense hepatic cysts. Spleen is normal in size. No adrenal nodules. Both kidneys are normal in size, without hydronephrosis. A few benign renal cysts. Largest cyst on the right measures 5.6 cm. Nodes and vessels: No retroperitoneal or mesenteric adenopathy by size criteria. Aorta and inferior vena cava are normal in size. Bowel and peritoneum: Unenhanced bowel loops are normal in caliber. Duodenal diverticulum. Diverticulosis. No ascites. Lung bases: No basal pleural effusions. Heart size is normal. Bones and soft tissues: No ventral hernias. Bone marrow is of normal overall signal. IMPRESSION: 1. Edema signal surrounding the pancreas. This is concerning for pancreatitis. No loculated fluid collection. 2. Pericholecystic fluid and distended gallbladder. Findings could be secondary reactive or due to cholecystitis. No gallstones seen. 3. No biliary or pancreatic ductal dilatation. No choledocholithiasis. Dictated by: Jose Hendrix M.D. on 12/11/2022 at 15:59 Approved by: Jose Hendrix M.D. on 12/11/2022 at 16:08
[2022-12-11] MEDS: ONDANSETRON 4 MG ODT PO (16:58)
[2022-12-12 03:03] VITALS: BP 119/51; PULSE 53; RESP 20; TEMP 36.8; O2SAT 95
[2022-12-12] MEDS: SODIUM CHLORIDE 0.9% 1,000 ML 150 ML IV (04:01)
[2022-12-12] MEDS: PIPERACILLIN/TAZO 3.375 GM in SODIUM CHLORIDE 0.9% 100 ML IV ×2 (04:01→11:10)
[2022-12-12 08:00] VITALS: BP 152/61; PULSE 59; RESP 17; TEMP 36.2; O2SAT 96
[2022-12-12 08:19] VITALS: BP 152/61; PULSE 59
[2022-12-12] MEDS: METOPROLOL ER 25 MG TABLET PO (08:19)
[2022-12-12] MEDS: PANTOPRAZOLE 40 MG VIAL IV (08:20)
[2022-12-12 08:25] LABS: Add Manual Diff / Slide Review NO; Basophils Absolute Auto 0 /uL (0-100); Basophils Percent Auto 0.4 % (0-2); Eosinophils Absolute Auto 200 /uL (0-450); Eosinophils Percent Auto 2.9 % (2-4); Hematocrit 35.5 % (36-46); Hemoglobin 11.9 g/dL (12.0-16.0); Lymphocytes Absolute Auto 1500 /uL (1100-4500); Lymphocytes Percent Auto 24.5 % (25-40); Mean Corpuscular HGB Conc 33.6 % (30-36); Mean Corpuscular Hemoglobin 30.7 PG (26-34); Mean Corpuscular Volume 91.5 fL (80-100); Monocytes Absolute Auto 500 /uL (0-900); Monocytes Percent Auto 8.8 % (3-14); Neutrophils Absolute Auto 3900 /uL (1500-7000); Neutrophils Percent Auto 63.4 % (50-75); Platelet Count 220 X10^3/uL (150-400); Red Blood Cell Count 3.88 X10^6/uL (4.0-5.2); Red Cell Distribution Width 15.1 % (11.6-14.8); White Blood Cell Count 6.2 X10^3/uL (4.5-11.0)
--- NOTE | 2022-12-12 11:18 | CM.DPC ---
DCP Cont. Reviewed EMR and team rounds for updates. Pt's diet is being advanced today, d/c later this evening w/oral ABO's pending how she does with diet. DCP will continue to monitor for any further d/c needs. Pt's friend will transport home. No further needs indicated at this time.
[2022-12-12 12:00] VITALS: BP 120/49; PULSE 55; RESP 16; TEMP 36.4; O2SAT 98
[2022-12-12 12:36] VITALS: BP 120/49; PULSE 55
--- NOTE | 2022-12-12 13:40 | P.DS_ITS ---
History of Present Illness History of Present Illness Date Patient Seen: 12/12/22 Time Patient Seen: 13:40 Chief complaint: ABD Pain Narrative: 82 y/o with PMH of HTN, diverticulitis, meningioma that presented to ED with epigastric and hypogastric pain, nausea, and NBNB emesis x1. She was admitted by telehospitalist service overnight for acute pancreatitis with lipase of >30,000. She reports acute onset of periumbilical and epigastric pain starting at midnight. She drinks a couple of times per week, last drink was 2 days ago. Yesterday evening she ate out and had a large meal. Pain is sharp, associated with nausea and NBNB emesis x1. She feels a bit better after pain medication and nausea medication this morning, but has no appetite and is not thirsty. No fever or chills recently. CT scan showed dilated gallbladder, but no obvious stones. There is possible mild GBWT and initially radiology report read as a duodenal diverticulum. Awaiting callback from radiologist for further discussion. Discharge Providers Provider Date of admission: 12/11/22 04:28 Discharge Date: 12/12/22 Primary care physician: Joycelyn Padgett PA-C Discharge provider: Christos Brenner DO Summary Hospital Course Discharge Diagnosis: 1. Acute pancreatitis, possible acute cholecystitis ? 2. Possible acute cystitis 3. HTN 4.? Over active bladder Hospital Course: This is an 82 year old female admitted with acute pancreatitis. Etiology was not entirely clear. There was also some RUQ pain and gallbladder distension and wall thickening. She was started on antibiotics with marked improvement the following day. Her diet was quickly advanced and she was tolerating a low fat diet without symptoms the following day. She had an MRCP and there was no biliary obstruction, but also no gallstones. She drinks a few glasses of wine a week per her report. Discussed with general surgery, and conservative management is recommended at this time given unclear etiology and lack of gallstones on CT and MRCP. She was discharged on oral antibiotics for possible cholecystitis as well as acute cystitis. Urine cultures are pending at the time of discharge. Follow up with PCP is recommended depending on ongoing symptoms to discuss general surgery referral to discuss possible cholecystectomy. Time Spent with Patient Time spent: Greater than 30 minutes Exam Vital Signs (past 8 hours): - 12/12/22 08:19 12/12/22 08:00 12/12/22 12:00 Temperature 97.1 F L 97.5 F L Pulse Rate 59 L 59 L 55 L Respiratory Rate 17 16 Blood Pressure 152/61 H 152/61 H 120/49 L Pulse Oximetry 96 98 Oxygen Flow Rate 0 12/12/22 12:36 Temperature Pulse Rate 55 L Respiratory Rate Blood Pressure 120/49 L Pulse Oximetry Oxygen Flow Rate Oxygen Delivery Method Room Air Oxygen Flow Rate 0 Narrative Exam Narrative: General:? Patient is well developed and well nourished, in no distress at this time but appears slightly uncomfortable and mildly ill due to pain. HEENT:? Normocephalic, atraumatic, extraocular muscles intact, oral pharynx is clear and mucous membranes are moist. Chest:? Normal AP diameter and contour without kyphoscoliosis, no tachypnea, equal chest rise bilaterally. Lungs:? CTA b/l no wheezing rhonchi or rales. Cardio:?RRR no m/r/g. Abdomen: soft, non-distended. minimal epigastric tenderness. Musculoskeletal:? Muscle strength and tone are equal within normal limits, no deformity. Extremities: No edema or joint effusions. No cyanosis or clubbing. Skin:? Pale,? Warm to touch,dry and intact without rashes, ulcerations or petechiae.? Neuro:? Alert and orientated x3,? sensation to touch intact in all extremities, no gross deficits noted of cranial nerves. Psych:? Patient has a well-kept appearance, appropriate affect, mental status attitude thought context and judgment are appropriate for age. Objective Labs 12/12/22 07:00 12/11/22 11:43 Labs: Laboratory Results - last 24 hr 12/12/22 07:00 WBC 6.2 RBC 3.88 L Hgb 11.9 L Hct 35.5 L MCV 91.5 MCH 30.7 MCHC 33.6 RDW 15.1 H Plt Count 220 Neut % (Auto) 63.4 Lymph % (Auto) 24.5 L [place] % (Auto) 8.8 Eos % (Auto) 2.9 Baso % (Auto) 0.4 Neut # (Auto) 3900 Lymph # (Auto) 1500 [place] # (Auto) 500 Eos # (Auto) 200 Baso # (Auto) 0 PFSH Medical History Arthritis Noe's esophagus Colitis Diverticulitis Eczema GERD (gastroesophageal reflux disease) HTN (hypertension) Meningioma (~2014) RBBB with left anterior fascicular block Surgical History History of bilateral hip arthroplasty History of esophagogastroduodenoscopy (EGD) (2019) History of hysterectomy Hx of appendectomy Hx of bilateral cataract extraction (2019) Social History household members: spouse and caregiver Smoking Status: Former smoker alcohol intake: current Discharge Plan Discharge Plan Patient Disposition: Home Provider Discharge Comment: you were admitted to the hospital with pancreatitis, or inflammation of your pancreas. Possible etiologies include alcohol and gallbladder disease as the most likely thing. Discharge orders & Medications Prescriptions: New amoxicillin-pot clavulanate 875-125 mg tablet 1 tab PO BID 5 Days Qty: 10 0RF Continued ibuprofen [IBU] 400 mg tablet 400 mg PO Q4HR PRN (Reason: Pain, Mild) metoprolol succinate [Toprol XL] 25 mg tablet extended release 24 hr 25 mg PO DAILY trospium 20 mg tablet 20 mg PO BID Follow up/Referrals: Joycelyn Padgett PA-C [Primary Care Provider] - Visit Report/Discharge Packet Instructions: Eating a Diet Low in Saturated Fat, Trans Fat, and Cholesterol, Acute Pancreatitis, Fat-Restricted Diet Stand Alone Forms: Patient Portal/API, Stroke Signs & Symptoms Discharge Data Primary Care Provider: Joycelyn Padgett Quality VTE Deep Vein Thrombosis/Pulmonary Embolism Present on Admission: No
--- NOTE | 2022-12-12 16:58 | PC.NURSE ---
Day shift: Pt advanced from NPO this AM to clear liquid diet to low-fat general diet by lunchtime. Patient tolerated well. No nausea, no pain. PIV removed after noon dose of IV zosyn. Discharge instructions gone over with patient. Patient stated understanding. All questions answered. PCT Kendell escorted patient to main entrance where her friend picked her up to take her home. All belongings with patient.
== END 2022-12-12 16:55 | disposition home or self-care (01) | DRG 439 ==
LOC: ED 01:51 → AC 04:28
PROVIDERS: Internal Medicine; Admitting Provider Internal Medicine; Emergency Provider Emergency Medicine; PCP Physician Assistant Medical; Referring Provider Emergency Medicine; Visit Provider Internal Medicine
DX: K85.20 Alcohol induced acute pancreatitis without necrosis or infection (principal); K81.0 Acute cholecystitis; K22.70 Barrett's esophagus without dysplasia; K21.9 Gastro-esophageal reflux disease without esophagitis; M19.90 Unspecified osteoarthritis, unspecified site; I10 Essential (primary) hypertension; N32.81 Overactive bladder; Z87.891 Personal history of nicotine dependence
CPT/HCPCS: 36415; 74177; 74181; 80053; 80061; 81003; 81015; 83605; 83690; 85025; 87077; 87086; 93005; 96374; 96375; 99284; C9113; J1170; J2270; J2405; J2543; Q9967

== ENCOUNTER 2024-02-09 23:14 | Inpatient (IN) | payer MEDICARE, SELFPAY ==
[2022-12-11 05:30] VITALS: BMI 33.4
[2024-02-09 23:15] VITALS: BP 188/83; PULSE 64; RESP 22; TEMP 36.6; O2SAT 99; BMI 34.4
[2024-02-09 23:18] VITALS: PULSE 63; O2SAT 98
[2024-02-09 23:19] VITALS: BP 188/83; PULSE 63; O2SAT 99
[2024-02-09 23:30] VITALS: BP 168/72; PULSE 64; O2SAT 97
[2024-02-09 23:44] LABS: Add Manual Diff / Slide Review NO; Basophils Absolute Auto 0 /uL (0-100); Basophils Percent Auto 0.5 % (0-2); Eosinophils Absolute Auto 300 /uL (0-450); Eosinophils Percent Auto 2.7 % (2-4); Hematocrit 39.8 % (36-46); Hemoglobin 13.3 g/dL (12.0-16.0); Lymphocytes Absolute Auto 1800 /uL (1100-4500); Lymphocytes Percent Auto 18.6 % (25-40); Mean Corpuscular HGB Conc 33.4 % (30-36); Mean Corpuscular Hemoglobin 30.2 PG (26-34); Mean Corpuscular Volume 90.4 fL (80-100); Monocytes Absolute Auto 600 /uL (0-900); Monocytes Percent Auto 6.5 % (3-14); Neutrophils Absolute Auto 6900 /uL (1500-7000); Neutrophils Percent Auto 71.7 % (50-75); Platelet Count 276 X10^3/uL (150-400); Red Cell Distribution Width 14.1 % (11.6-14.8); White Blood Cell Count 9.7 X10^3/uL (4.5-11.0)
[2024-02-09 23:46] LABS: Alanine Aminotransferase 26 IU/L (<35); Albumin 4.5 g/dL (3.5-5.0); Albumin Globulin Ratio 1.4 (1.0-2.8); Alkaline Phosphatase 95 U/L (38-126); Aspartate Aminotransferase 49 IU/L (14-36); BUN Creatinine Ratio 27.2 (6-22); Bilirubin Total 0.5 mg/dL (0.2-1.3); Blood Urea Nitrogen 25 mg/dL (7-17); Calcium 10.1 mg/dL (8.4-10.2); Carbon Dioxide 22 mmol/L (22-32); Chloride 110 mmol/L (98-107); Estimated Glomerular Filt Rate > 60 mL/min (>60); Globulin 3.2 g/dL (1.7-4.1); Glucose 116 mg/dL (80-110); HEMOLYSIS < 15 (0-50); Potassium 3.8 mmol/L (3.4-5.1); Sodium 141 mmol/L (137-145); Total Protein 7.7 g/dL (6.3-8.2)
[2024-02-10] VITALS (14 sets, daily range): BP systolic 115–184; BP diastolic 51–82; PULSE 58–78; RESP 17–20; TEMP 35.9–37.3; O2SAT 87–99; BMI 34.4
[2024-02-10] MEDS: ONDANSETRON 4 MG/2 ML INJ IV ×3 (00:03→13:48)
[2024-02-10] MEDS: MORPHINE 4 MG/ML INJ IV (00:03)
--- NOTE | 2024-02-10 00:03 | PC.NURSE ---
In to exam room to administer medications. Pt noted to be sitting at end of stretcher still attatched to all vs monitors. Requested pt to scoot back in stretcher and not be at end of bed after medication administration d/t increased possibility of dizziness s/p med administration. Reoriented pt to room and call light and reminded to use call light for staff to respond if patient needs something not within reach.
--- NOTE | 2024-02-10 00:08 | ED.GENADULT ---
HPI - General Adult General Chief complaint: Abdominal Pain Stated complaint: Abd pain Time Seen by Provider: 02/09/24 23:33 Source: patient and EMS Mode of arrival: EMS History of Present Illness HPI narrative: Patient is an 83-year-old female. One year ago had a history of pancreatitis that according to the medical record was diagnosed as alcoholic pancreatitis. States that this evening she was sitting at home. Had a fairly sudden onset of epigastric and left upper sided abdominal discomfort that feels very similar to her prior history of pancreatitis. Nausea but no vomiting. No fevers. No urinary symptoms. No change in bowel habits. She was not eating at the time that the symptoms happened. She denies drinking any alcohol. Related Data Home Medications Medication Instructions Recorded Confirmed ibuprofen 400 mg tablet (IBU) 400 mg PO Q4HR PRN Pain, Mild 12/11/22 12/11/22 metoprolol succinate 25 mg 25 mg PO DAILY 12/11/22 12/11/22 tablet,extended release 24 hr (Toprol XL) trospium 20 mg tablet 20 mg PO BID 12/11/22 12/11/22 Allergies Allergy/AdvReac Type Severity Reaction Status Date / Time adhesive tape Allergy Intermediate Rash - Verified 12/15/19 13:40 Paper/silk tape ok Review of Systems Review of Systems ROS Unobtainable: All systems reviewed & are unremarkable except as noted in HPI and below Patient History Medical History HTN (hypertension) Arthritis GERD (gastroesophageal reflux disease) Meningioma (~2013) Eczema Diverticulitis Colitis 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 Surgical History History of bilateral hip arthroplasty History of esophagogastroduodenoscopy (EGD) (2019) History of hysterectomy Hx of appendectomy Hx of bilateral cataract extraction (2019) Social History household members: spouse and caregiver Smoking Status: Former smoker alcohol intake: current Smoking Status: Former smoker alcohol intake frequency: a few times a week Substance Use Type: does not use Exam Initial Vital Signs Initial Vital Signs: Vital Signs Temperature 97.9 F 02/09/24 23:15 Pulse Rate 64 02/09/24 23:15 Respiratory Rate 22 02/09/24 23:15 Blood Pressure 188/83 H 02/09/24 23:15 Pulse Oximetry 99 02/09/24 23:15 Oxygen Delivery Method Room Air 02/09/24 23:15 Const General: cooperative and No ill appearing HENFL Head: normal to inspection and normocephalic Resp Effort & Inspection: normal respiratory effort Auscultation: clear to auscultation bilaterally Cardio Rate: regular rate Rhythm: regular rhythm GI Inspection: normal to inspection and non-distended Palpation: soft, No firm, No guarding and tender Skin General: no rashes or lesions noted Neuro General: patient alert, patient awake and moves all extremities Course Orders Ordered: ED Orders 02/09/24 23:20 Complete Blood Count AUTO DIFF Stat Comprehensive Metabolic Panel Stat Lipase Stat 02/10/24 00:10 US abdomen limited Stat 02/10/24 00:51 ETOH [Ethanol (ETOH)] Stat 02/10/24 01:39 Education, smoking cessation ONGOING Acetaminophen (Acetaminophen 325 Mg Tablet) 650 mg PO Q6H PRN PRN Reason: Fever/Mild Pain (1-3) Heparin Sodium (Porcine) (Heparin 5,000 Unit/Ml Vial) 5,000 unit SUBCUT BID DOMINIC Hydromorphone HCl (Hydromorphone 0.5 Mg Inj) 1 mg IV Q2H PRN PRN Reason: Pain, Severe (7-10) Sodium Chloride (Normal Saline 0.9%) 1,000 mls @ 150 mls/hr IV CONT DOMINIC Last Admin: 02/10/24 00:57 Dose: 150 mls/hr Documented By: REYMUNDO Sodium Chloride (Normal Saline 0.9%) 1,000 mls @ 150 mls/hr IV CONT DOMINIC Naloxone HCl (Naloxone 0.4 Mg/Ml Vial) 0.2 mg IV Q2MIN PRN PRN Reason: Opiate Reversal Ondansetron HCl (Ondansetron 4 Mg/2 Ml Inj) 4 mg IV Q8HR PRN PRN Reason: Nausea And Vomiting Discontinued Medications Hydromorphone HCl (Hydromorphone 1 Mg Inj) 1 mg IV NOW ONE Stop: 02/10/24 01:02 Last Admin: 02/10/24 01:05 Dose: 1 mg Documented By: Morphine Sulfate (Morphine 4 Mg/Ml Inj) 4 mg IV NOW ONE Stop: 02/09/24 23:54 Last Admin: 02/10/24 00:03 Dose: 4 mg Documented By: ERMELINDA Ondansetron HCl (Ondansetron 4 Mg/2 Ml Inj) 4 mg IV NOW ONE Stop: 02/09/24 23:54 Last Admin: 02/10/24 00:03 Dose: 4 mg Documented By: ERMELINDA Ondansetron HCl (Ondansetron 4 Mg/2 Ml Inj) 4 mg IV NOW ONE Stop: 02/10/24 01:44 Vital Signs Vital signs: Vital Signs - 8 hr 02/09/24 23:15 Temperature 97.9 F Pulse Rate 64 Respiratory Rate 22 Blood Pressure 188/83 H Pulse Oximetry 99 Oxygen Delivery Method Room Air Medical Decision Making Medical Records Medical records reviewed: Yes I reviewed the patient's medical records. Lab Data Lab results reviewed: Yes I reviewed the patient's lab results. 02/09/24 23:20 02/09/24 23:20 Labs: Lab Results 02/09/24 Range/Units 23:20 WBC 9.7 (4.5-11.0) X10^3/uL RBC 4.40 (4.0-5.2) X10^6/uL Hgb 13.3 (12.0-16.0) g/dL Hct 39.8 (36-46) % MCV 90.4 (80-100) fL MCH 30.2 (26-34) PG MCHC 33.4 (30-36) % RDW 14.1 (11.6-14.8) % Plt Count 276 (150-400) X10^3/uL Neut % (Auto) 71.7 (50-75) % Lymph % (Auto) 18.6 L (25-40) % [place] % (Auto) 6.5 (3-14) % Eos % (Auto) 2.7 (2-4) % Baso % (Auto) 0.5 (0-2) % Neut # (Auto) 6900 (4915-2658) /uL Lymph # (Auto) 1800 (1123-4258) /uL [place] # (Auto) 600 (0-900) /uL Eos # (Auto) 300 (0-450) /uL Baso # (Auto) 0 (0-100) /uL Sodium 141 (137-145) mmol/L Potassium 3.8 (3.4-5.1) mmol/L Chloride 110 H (98-107) mmol/L Carbon Dioxide 22 (22-32) mmol/L BUN 25 H (7-17) mg/dL Creatinine 0.92 (0.52-1.04) mg/dL Estimated GFR > 60 (>60) mL/min BUN/Creatinine Ratio 27.2 H (6-22) Glucose 116 H (80-110) mg/dL Calcium 10.1 (8.4-10.2) mg/dL Total Bilirubin 0.5 (0.2-1.3) mg/dL AST 49 H (14-36) IU/L ALT 26 (<35) IU/L Alkaline Phosphatase 95 (38-126) U/L Total Protein 7.7 (6.3-8.2) g/dL Albumin 4.5 (3.5-5.0) g/dL Globulin 3.2 (1.7-4.1) g/dL Albumin/Globulin Ratio 1.4 (1.0-2.8) Lipase 55893 H (23-300) U/L Ethyl Alcohol < 10 ( - 10) mg/dL Imaging Data US - abdomen: Radiologist's Impression: PROCEDURE: US ABDOMEN LIMITED INDICATIONS: epigastric pain eval for GB pathology TECHNIQUE: Real-time focused scanning was performed of the abdomen, with image documentation. COMPARISON: [facility], , MR ABDOMEN WO CON, 12/11/2022, 14:57. FINDINGS: Liver measures 17 cm. Echogenicity is increased. Gallbladder is unremarkable. No focal stones are sonographic Oswald sign. CBD measures 8 mm, which is borderline distended. Pancreas where visualized is unremarkable, but not well evaluated on ultrasound. Right superior pole renal cyst partially seen measuring 7 cm. IMPRESSION: Unremarkable sonographic appearance of the gallbladder. CBD is borderline distended at 8 mm. Correlate with LFTs. Increased hepatic echogenicity, likely steatosis, also seen on prior MRI. MDM Narrative Medical decision making narrative: Patient has a significantly elevated lipase. LFTs are relatively unremarkable. No leukocytosis. Is afebrile. Right upper quadrant ultrasound shows no indication of an acute cholecystitis. Common bile duct is at upper limit of normal. Alcohol level negative. Patient was given multiple doses of pain medication. Only minimal control of her discomfort. Fluids were administered. Discussed the case with Dr. Geronimo hospitalist on-call who will admit for further evaluation and treatment. I discussed the laboratory findings the need for admission with the patient. She expressed understanding and agreement. Discharge Plan Departure Patient Disposition: Admitted As Inpatient Clinical Impression: Pancreatitis Admit Date/Time: 02/10/24 01:42 Admit Provider: Amrit Geronimo
--- NOTE | 2024-02-10 00:10 | DI.US.S_ITS ---
PROCEDURE: US ABDOMEN LIMITED INDICATIONS: epigastric pain eval for GB pathology TECHNIQUE: Real-time focused scanning was performed of the abdomen, with image documentation. COMPARISON: [facility], MR, MR ABDOMEN WO CON, 12/11/2022, 14:57. FINDINGS: Liver measures 17 cm. Echogenicity is increased. Gallbladder is unremarkable. No focal stones are sonographic Oswald sign. CBD measures 8 mm, which is borderline distended. Pancreas where visualized is unremarkable, but not well evaluated on ultrasound. Right superior pole renal cyst partially seen measuring 7 cm. IMPRESSION: Unremarkable sonographic appearance of the gallbladder. CBD is borderline distended at 8 mm. Correlate with LFTs. Increased hepatic echogenicity, likely steatosis, also seen on prior MRI. Dictated by: Antoine Wing M.D. on 02/10/2024 at 0:34 Approved by: Antoine Wing M.D. on 02/10/2024 at 0:36
[2024-02-10 00:14] LABS: Lipase 39497 U/L (23-300)
[2024-02-10] MEDS: SODIUM CHLORIDE 0.9% 1,000 ML 150 ML IV ×3 (00:57→02:50)
[2024-02-10] MEDS: HYDROMORPHONE 1 MG INJ IV ×5 (01:05→18:57)
[2024-02-10 01:13] LABS: Ethanol (ETOH) < 10 mg/dL
[2024-02-10] MEDS: HYDROMORPHONE 0.5 MG INJ 1 MG IV ×2 (02:39→08:39)
--- NOTE | 2024-02-10 03:30 | PC.NURSE ---
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 Patient vomited 100cc brown emesis. IV Zofran & Dilaudid given, patient states relief and appears more relaxed. AxOx4. Hypertensive (162/76), HR 60, SpO2 in mid 90's on 2L NC. Patient reports pain and tenderness in abdomen, bowel tones heard in all 4 quadrants. Notified MD Geronimo of findings, MD spoke with patient. IVF infusing, NPO. Oriented patient to call-light, plan of care ongoing.
--- NOTE | 2024-02-10 04:26 | PM.HP.1 ---
History of Present Illness History of Present Illness Chief complaint: Abd pain Narrative: 83-year-old female with past history of GERD hypertension and alcohol related acute pancreatitis back in 2022 presents with abdominal pain. Per the patient report, the patient started to have worsening epigastric abdominal pain that started yesterday. The patient also has some nausea and vomiting that is non bloody. The patient said that she has not been drinking lately but this pain is very similar to the one last year where she was diagnosed with alcoholic pancreatitis. The last alcohool drink was reported 5 days ago and only one glass of red wine. Otherwise patient denies any fever, chills, chest pain, shortness of breath, diarrhea or syncope. In our emergency room, the patient was hemodynamically stable. Labs were benign with normal Bili and only mildly elevated AST. Alcohol level was negative. lipase level however was 39,000s. The patient received IV fluid as well as IV Dilaudid. Abdominal ultrasound done in the ER did not show any stone or inflamed gallbladder. Common bile duct was 8 mm. 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 Surgical History History of bilateral hip arthroplasty History of esophagogastroduodenoscopy (EGD) (2019) History of hysterectomy Hx of appendectomy Hx of bilateral cataract extraction (2019) Social History household members: spouse and caregiver Smoking Status: Former smoker alcohol intake: current Meds Home Medications and Allergies Home Medications Medication Instructions Recorded Confirmed Type ibuprofen 400 mg tablet (IBU) 400 mg PO Q4HR PRN Pain, Mild 12/11/22 02/10/24 History metoprolol succinate 25 mg 25 mg PO DAILY 12/11/22 02/10/24 History tablet,extended release 24 hr (Toprol XL) trospium 20 mg tablet 20 mg PO BID 12/11/22 02/10/24 History Allergies Allergy/AdvReac Type Severity Reaction Status Date / Time adhesive tape Allergy Intermediate Rash - Verified 12/15/19 13:40 Paper/silk tape ok Review of Systems Review of Systems ROS: Yes All systems reviewed with the patient and are negative except as otherwise documented Exam Vital Signs (past 8 hours): - 02/09/24 23:15 02/09/24 23:18 02/09/24 23:19 Temperature 97.9 F Pulse Rate 64 63 Respiratory Rate 22 Blood Pressure 188/83 H 188/83 H Pulse Oximetry 99 98 Oxygen Delivery Method Room Air Oxygen Flow Rate 02/09/24 23:19 02/09/24 23:30 02/09/24 23:30 Temperature Pulse Rate 63 64 Respiratory Rate Blood Pressure 168/72 H Pulse Oximetry 99 97 Oxygen Delivery Method Oxygen Flow Rate 02/10/24 00:00 02/10/24 00:01 02/10/24 00:01 Temperature Pulse Rate 67 65 Respiratory Rate Blood Pressure 149/70 H Pulse Oximetry 87 L 91 Oxygen Delivery Method Oxygen Flow Rate 02/10/24 00:30 02/10/24 00:30 02/10/24 01:00 Temperature Pulse Rate 63 Respiratory Rate Blood Pressure 163/70 H 184/79 H Pulse Oximetry 88 L Oxygen Delivery Method Oxygen Flow Rate 02/10/24 01:00 02/10/24 01:30 02/10/24 01:31 Temperature Pulse Rate 65 58 L 59 L Respiratory Rate Blood Pressure Pulse Oximetry 95 94 90 L Oxygen Delivery Method Nasal Cannula Oxygen Flow Rate 2 02/10/24 01:31 02/10/24 02:00 02/10/24 02:00 Temperature Pulse Rate 64 Respiratory Rate Blood Pressure 166/74 H 171/80 H Pulse Oximetry 89 L Oxygen Delivery Method Nasal Cannula Oxygen Flow Rate 2 02/10/24 02:20 02/10/24 03:13 Temperature 96.6 F L Pulse Rate 61 Respiratory Rate 18 Blood Pressure 162/76 H Pulse Oximetry 96 Oxygen Delivery Method Nasal Cannula Oxygen Flow Rate 1 Oxygen Delivery Method Nasal Cannula Oxygen Flow Rate 1 Narrative Exam Narrative: GENERAL: The patient is not in any acute distressed. Awake and alert. HEENT: Nonicteric sclerae, PERRLA, EOMI. Oropharynx clear. Moist mucous membranes. Conjunctivae appear well perfused. HEART: Regular rate and rhythm without murmurs. No lower extremities edema. LUNGS: Clear to auscultation bilaterally. No wheezing, crackles or rhonchi ABDOMEN: Soft, positive bowel sounds, nontender. SKIN: No rash, no excessive bruising, petechiae, or purpura. NEUROLOGIC: AxO x 3. Cranial nerves II-XII intact without motor/sensory deficit. Objective Labs 02/09/24 23:20 02/09/24 23:20 Labs: Laboratory Results - last 24 hr 02/09/24 23:20 WBC 9.7 RBC 4.40 Hgb 13.3 Hct 39.8 MCV 90.4 MCH 30.2 MCHC 33.4 RDW 14.1 Plt Count 276 Neut % (Auto) 71.7 Lymph % (Auto) 18.6 L [place] % (Auto) 6.5 Eos % (Auto) 2.7 Baso % (Auto) 0.5 Neut # (Auto) 6900 Lymph # (Auto) 1800 [place] # (Auto) 600 Eos # (Auto) 300 Baso # (Auto) 0 Sodium 141 Potassium 3.8 Chloride 110 H Carbon Dioxide 22 BUN 25 H Creatinine 0.92 Estimated GFR > 60 BUN/Creatinine Ratio 27.2 H Glucose 116 H Calcium 10.1 Total Bilirubin 0.5 AST 49 H ALT 26 Alkaline Phosphatase 95 Total Protein 7.7 Albumin 4.5 Globulin 3.2 Albumin/Globulin Ratio 1.4 Lipase 29534 H Ethyl Alcohol < 10 Assessment & Plan Assessment & Plan narrative: Recurrent pancreatitis. Admit the patient medical telemetry as inpatient. NPO. IV fluid. IV pain medication and IV antimedics. Note patient states last alcohol drink was 5 days ago and was only a glass of heaven. Alcohol level today is negative. Abdominal ultrasound done in the ER did not show any stone or inflamed gallbladder. Common bile duct was 8 mm. Dehydration. IV fluid. Hypertension. Resume home metoprolol tomorrow if patient able to take PO. DVT prophylaxis heparin sub Q. Code status full code. Disposition likely home 2 to 3 days Time-Based Coding :: [TOTAL MINUTES] spent with patient and on the chart (including review of chart, obtaining history, exam, reviewing outside data, placing orders, documenting exam and treatment plan, and counseling patient) on [DATE].
[2024-02-10] MEDS: ACETAMINOPHEN 325 MG TABLET 650 MG PO (05:14)
[2024-02-10 08:35] LABS: Add Manual Diff / Slide Review NO; Basophils Absolute Auto 100 /uL (0-100); Basophils Percent Auto 0.5 % (0-2); Eosinophils Absolute Auto 0 /uL (0-450); Eosinophils Percent Auto 0.2 % (2-4); Hematocrit 41.3 % (36-46); Hemoglobin 13.6 g/dL (12.0-16.0); Lymphocytes Absolute Auto 800 /uL (1100-4500); Lymphocytes Percent Auto 7.1 % (25-40); Mean Corpuscular HGB Conc 32.8 % (30-36); Mean Corpuscular Hemoglobin 29.9 PG (26-34); Mean Corpuscular Volume 91.2 fL (80-100); Monocytes Absolute Auto 500 /uL (0-900); Monocytes Percent Auto 4.7 % (3-14); Neutrophils Absolute Auto 9700 /uL (1500-7000); Neutrophils Percent Auto 87.5 % (50-75); Platelet Count 265 X10^3/uL (150-400); Red Blood Cell Count 4.53 X10^6/uL (4.0-5.2); White Blood Cell Count 11.1 X10^3/uL (4.5-11.0)
[2024-02-10] MEDS: METOPROLOL ER 25 MG TABLET PO (08:40)
[2024-02-10] MEDS: HEPARIN 5,000 UNIT/ML VIAL 5000 UNIT SUBCUT ×2 (08:40→20:01)
[2024-02-10 08:45] LABS: Alanine Aminotransferase 39 IU/L (<35); Albumin 4.2 g/dL (3.5-5.0); Albumin Globulin Ratio 1.3 (1.0-2.8); Alkaline Phosphatase 99 U/L (38-126); Aspartate Aminotransferase 58 IU/L (14-36); Bilirubin Total 0.5 mg/dL (0.2-1.3); Blood Urea Nitrogen 24 mg/dL (7-17); Calcium 9.5 mg/dL (8.4-10.2); Carbon Dioxide 25 mmol/L (22-32); Chloride 109 mmol/L (98-107); Estimated Glomerular Filt Rate > 60 mL/min (>60); Globulin 3.2 g/dL (1.7-4.1); Glucose 133 mg/dL (80-110); HEMOLYSIS < 15 (0-50); Potassium 4.8 mmol/L (3.4-5.1); Sodium 141 mmol/L (137-145); Total Protein 7.4 g/dL (6.3-8.2)
[2024-02-10] MEDS: hydrOXYzine 50 MG/ML INJ 25 MG IM ×2 (09:17→13:48)
[2024-02-10] MEDS: HYDROMORPHONE 0.5 MG INJ 2 MG IV (09:21)
[2024-02-10] MEDS: SODIUM CHLORIDE 0.9% 1,000 ML 200 ML IV ×3 (09:27→18:57)
[2024-02-10] MEDS: HYDROMORPHONE 2 MG INJ IV ×4 (11:52→17:46)
--- NOTE | 2024-02-10 12:53 | P.HP_ITS ---
History of Present Illness History of Present Illness Date Patient Seen: 02/10/24 Time Patient Seen: 12:53 Chief complaint: Abd pain Narrative: Per overnight provider, 83-year-old female with past history of GERD hypertension and alcohol related acute pancreatitis back in 2022 presents with abdominal pain. Per the patient report, the patient started to have worsening epigastric abdominal pain that started yesterday. The patient also has some nausea and vomiting that is non bloody. The patient said that she has not been drinking lately but this pain is very similar to the one last year where she was diagnosed with alcoholic pancreatitis. The last alcohool drink was reported 5 days ago and only one glass of red wine. Otherwise patient denies any fever, chills, chest pain, shortness of breath, diarrhea or syncope. In our emergency room, the patient was hemodynamically stable. Labs were benign with normal Bili and only mildly elevated AST. Alcohol level was negative. lipase level however was 39,000s. The patient received IV fluid as well as IV Dilaudid. Abdominal ultrasound done in the ER did not show any stone or inflamed gallbladder. Common bile duct was 8 mm. Interval history: Patient reports 2-3 drinks per week currently. Has had some intermittent lower abdominal pain that resolves since her last admission for pancreatitis. She has severe epigastric pain this morning. Will continue NPO status today, increased her dilaudid dose as well. 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 Surgical History History of bilateral hip arthroplasty History of esophagogastroduodenoscopy (EGD) (2019) History of hysterectomy Hx of appendectomy Hx of bilateral cataract extraction (2019) Social History household members: spouse and caregiver Smoking Status: Former smoker alcohol intake: current Meds Home Medications and Allergies Home Medications Medication Instructions Recorded Confirmed Type ibuprofen 400 mg tablet (IBU) 400 mg PO Q4HR PRN Pain, Mild 12/11/22 02/10/24 History metoprolol succinate 25 mg 25 mg PO DAILY 12/11/22 02/10/24 History tablet,extended release 24 hr (Toprol XL) trospium 20 mg tablet 20 mg PO BID 12/11/22 02/10/24 History Allergies Allergy/AdvReac Type Severity Reaction Status Date / Time adhesive tape Allergy Intermediate Rash - Verified 12/15/19 13:40 Paper/silk tape ok Review of Systems Review of Systems Narrative: All other systems reviewed with the patient and are negative unless otherwise stated. Exam Vital Signs (past 8 hours): - 02/10/24 08:00 02/10/24 08:40 02/10/24 09:20 Temperature 96.6 F L Pulse Rate 61 61 78 Respiratory Rate 18 Blood Pressure 162/76 H 167/76 H 146/68 H Pulse Oximetry 95 Oxygen Flow Rate 1 02/10/24 12:00 Temperature 97.8 F Pulse Rate 67 Respiratory Rate 18 Blood Pressure 154/82 H Pulse Oximetry 99 Oxygen Flow Rate 1 Oxygen Delivery Method Nasal Cannula Oxygen Flow Rate 1 Narrative Exam Narrative: General:? Patient is well developed and well nourished, in no distress at this time. HEENT:? Normocephalic, atraumatic, extraocular muscles intact, oral pharynx is clear and mucous membranes are dry. Neck: supple and symmetric, trachea is midline, no cervical adenopathy. Negative for JVD Chest:? Normal AP diameter and contour without kyphoscoliosis, no tachypnea, equal chest rise bilaterally. Lungs:? CTA b/l no wheezing rhonchi or rales. Cardio:?RRR no m/r/g. Abdomen: S non-distended, moderate tenderness epigastrium Musculoskeletal:? Muscle strength and tone are equal within normal limits, no deformity. Extremities: No edema or joint effusions. No cyanosis or clubbing. Skin:? Pale,? Warm to touch,dry and intact without rashes, ulcerations or petechiae.? Neuro:? Alert and orientated x3,? sensation to touch intact in all extremities, no gross deficits noted of cranial nerves. Psych:? Patient has a well-kept appearance, appropriate affect, mental status attitude thought context and judgment are appropriate for age. Objective Labs 02/10/24 08:25 02/10/24 08:25 Labs: Laboratory Results - last 24 hr 02/09/24 02/10/24 23:20 08:25 WBC 9.7 11.1 H RBC 4.40 4.53 Hgb 13.3 13.6 Hct 39.8 41.3 MCV 90.4 91.2 MCH 30.2 29.9 MCHC 33.4 32.8 RDW 14.1 14.0 Plt Count 276 265 Neut % (Auto) 71.7 87.5 H Lymph % (Auto) 18.6 L 7.1 L [place] % (Auto) 6.5 4.7 Eos % (Auto) 2.7 0.2 L Baso % (Auto) 0.5 0.5 Neut # (Auto) 6900 9700 H Lymph # (Auto) 1800 800 L [place] # (Auto) 600 500 Eos # (Auto) 300 0 Baso # (Auto) 0 100 Sodium 141 141 Potassium 3.8 4.8 Chloride 110 H 109 H Carbon Dioxide 22 25 BUN 25 H 24 H Creatinine 0.92 0.80 Estimated GFR > 60 > 60 BUN/Creatinine Ratio 27.2 H 30.0 H Glucose 116 H 133 H Calcium 10.1 9.5 Total Bilirubin 0.5 0.5 AST 49 H 58 H ALT 26 39 H Alkaline Phosphatase 95 99 Total Protein 7.7 7.4 Albumin 4.5 4.2 Globulin 3.2 3.2 Albumin/Globulin Ratio 1.4 1.3 Lipase 51519 H Ethyl Alcohol < 10 Assessment & Plan Assessment & Plan narrative: 1. Acute alcoholic pancreatitis, recurrent, present on admission - etiology remains likely alocholic induced. Biliary less likely without stones. - NPO / IVF and bowel rest, advance diet as tolerated. Continue IV fluids today. - trend LFTs. - needed to increase opiate pain medications this morning for severe pain. Continue IV dilaudid 2mg q2hr. 2. HTN - continue home metoprolol at 25 mg daily. 3. Over active bladder - continue home trospium. Code; Full. Surrogate is , advanced directive has been scanned. Dispo: Admitted inpatient, will probably discharge home with LOS anticipated at 3 days. I have utilized all available immediate resources to obtain, update, or review the patient's current medications. Additional history obtained from overnight hospitalist to obtain the above A&P. I have reviewed patient's EKG, abdominal imaging, labs and documentation personally. Time-Based Coding :: [TOTAL MINUTES] spent with patient and on the chart (including review of chart, obtaining history, exam, reviewing outside data, placing orders, documenting exam and treatment plan, and counseling patient) on [DATE].
--- NOTE | 2024-02-10 15:51 | CM.DANOTE ---
B DCP Assessment Note Pt is an 83yo F here with pancreatitis PCP Joycelyn Padgett Payer Medicare and [employer] DEPUTY JUVENILE OFFICER reviewed EMR. per chart review, [place] lives [place], indep at baseline. pt was here in dec 2022 for similar concern, thought to be alcohol related. last admission, discharged home with friend to transport no CM needs. pt reports having 2-3 drinks/week. per RN, no obvious CM needs at this time. per hospitalist in morning rounds, anticipate here 3-4 days. DEPUTY JUVENILE OFFICER unable to meet with pt today due to triaging needs. P: CM team will continue to follow closely for DCP/CM needs. anticipate return home when medically stable and OP f.u. transport with local friends likely MEMO Curran Discharge Planning/Care Management CM Discharge Assessment Start: 02/10/24 15:49 Freq: Status: Active Protocol: Document 02/10/24 15:49 (Rec: 02/10/24 15:51 [email or web address]) Discharge Planning Assessment Assigned Sustainability Coach MEMO Crockett Advance Directives? Yes: advance directive Advance Directives on File Yes History Provided By Patient,Medical Record Prior Living Arrangements House Type of transporation used prior to Drives own vehicle admit Independent with ADL's Yes Is patient alert and oriented? Yes Discharge Plan Home Transportation Arrangement Friend will transport. Referrals Initiated None needed Review Status In Process Please Provide Date Initial DC 02/10/24 Assessment Was Performed Next Review Type Continued Stay Review
[2024-02-11] VITALS: BP 133/74; PULSE 71; RESP 19; TEMP 36.4; O2SAT 95
[2024-02-11] MEDS: SODIUM CHLORIDE 0.9% 1,000 ML 200 ML IV ×2 (00:01→10:29)
[2024-02-11] MEDS: HYDROMORPHONE 1 MG INJ IV ×3 (00:23→23:53)
[2024-02-11 04:00] VITALS: BP 121/65; PULSE 75; RESP 20; TEMP 37.1; O2SAT 90
[2024-02-11 05:59] LABS: Add Manual Diff / Slide Review NO; Basophils Absolute Auto 0 /uL (0-100); Basophils Percent Auto 0.4 % (0-2); Eosinophils Absolute Auto 100 /uL (0-450); Eosinophils Percent Auto 1.1 % (2-4); Hematocrit 37.2 % (36-46); Hemoglobin 12.5 g/dL (12.0-16.0); Lymphocytes Absolute Auto 900 /uL (1100-4500); Lymphocytes Percent Auto 8.7 % (25-40); Mean Corpuscular HGB Conc 33.6 % (30-36); Mean Corpuscular Hemoglobin 30.7 PG (26-34); Mean Corpuscular Volume 91.4 fL (80-100); Monocytes Absolute Auto 600 /uL (0-900); Monocytes Percent Auto 5.8 % (3-14); Neutrophils Absolute Auto 8600 /uL (1500-7000); Platelet Count 242 X10^3/uL (150-400); Red Blood Cell Count 4.07 X10^6/uL (4.0-5.2); Red Cell Distribution Width 14.5 % (11.6-14.8); White Blood Cell Count 10.2 X10^3/uL (4.5-11.0)
[2024-02-11 06:17] LABS: Alanine Aminotransferase 26 IU/L (<35); Albumin 3.5 g/dL (3.5-5.0); Albumin Globulin Ratio 1.2 (1.0-2.8); Alkaline Phosphatase 84 U/L (38-126); Aspartate Aminotransferase 37 IU/L (14-36); BUN Creatinine Ratio 23.5 (6-22); Bilirubin Total 0.7 mg/dL (0.2-1.3); Blood Urea Nitrogen 16 mg/dL (7-17); Calcium 8.8 mg/dL (8.4-10.2); Carbon Dioxide 21 mmol/L (22-32); Chloride 111 mmol/L (98-107); Estimated Glomerular Filt Rate > 60 mL/min (>60); Globulin 2.9 g/dL (1.7-4.1); Glucose 122 mg/dL (80-110); HEMOLYSIS < 15 (0-50); Magnesium 1.7 mg/dL (1.6-2.3); Potassium 3.9 mmol/L (3.4-5.1); Sodium 137 mmol/L (137-145); Total Protein 6.4 g/dL (6.3-8.2)
[2024-02-11 08:00] VITALS: BP 146/79; PULSE 74; RESP 19; TEMP 37.1; O2SAT 98
[2024-02-11] MEDS: HEPARIN 5,000 UNIT/ML VIAL 5000 UNIT SUBCUT ×2 (08:18→20:45)
[2024-02-11] MEDS: ACETAMINOPHEN 325 MG TABLET 650 MG PO (08:18)
[2024-02-11] MEDS: METOPROLOL ER 25 MG TABLET PO (08:19)
--- NOTE | 2024-02-11 10:24 | PC.NURSE ---
Patient given dilaudid for pain, she states that she is feeling better. Tolerating ivf.
--- NOTE | 2024-02-11 11:11 | PM.PN.1 ---
Subjective Subjective Interval history: 83 F admitted with pancreatitis, likely due to EtOH. Had severe pain early this morning, but overall improving. Did get some IV dilaudid. Exam Vital Signs (past 8 hours): - 02/11/24 04:00 02/11/24 08:00 Temperature 98.8 F 98.7 F Pulse Rate 75 74 Respiratory Rate 20 19 Blood Pressure 121/65 146/79 H Pulse Oximetry 90 L 98 Oxygen Delivery Method Nasal Cannula Oxygen Flow Rate 0 Narrative Exam Narrative: General:? Patient is well developed and well nourished, in no distress at this time. HEENT:? Normocephalic, atraumatic, extraocular muscles intact, oral pharynx is clear and mucous membranes are dry. Neck: supple and symmetric, trachea is midline, no cervical adenopathy. Negative for JVD Chest:? Normal AP diameter and contour without kyphoscoliosis, no tachypnea, equal chest rise bilaterally. Lungs:? CTA b/l no wheezing rhonchi or rales. Cardio:?RRR no m/r/g. Abdomen: S non-distended, moderate tenderness epigastrium Musculoskeletal:? Muscle strength and tone are equal within normal limits, no deformity. Extremities: No edema or joint effusions. No cyanosis or clubbing. Skin:? Pale,? Warm to touch,dry and intact without rashes, ulcerations or petechiae.? Neuro:? Alert and orientated x3,? sensation to touch intact in all extremities, no gross deficits noted of cranial nerves. Psych:? Patient has a well-kept appearance, appropriate affect, mental status attitude thought context and judgment are appropriate for age. Objective Labs 02/11/24 05:00 02/11/24 05:00 Labs: Laboratory Results - last 24 hr 02/11/24 05:00 WBC 10.2 RBC 4.07 Hgb 12.5 Hct 37.2 MCV 91.4 MCH 30.7 MCHC 33.6 RDW 14.5 Plt Count 242 Neut % (Auto) 84.0 H Lymph % (Auto) 8.7 L [place] % (Auto) 5.8 Eos % (Auto) 1.1 L Baso % (Auto) 0.4 Neut # (Auto) 8600 H Lymph # (Auto) 900 L [place] # (Auto) 600 Eos # (Auto) 100 Baso # (Auto) 0 Sodium 137 Potassium 3.9 Chloride 111 H Carbon Dioxide 21 L BUN 16 Creatinine 0.68 Estimated GFR > 60 BUN/Creatinine Ratio 23.5 H Glucose 122 H Calcium 8.8 Magnesium 1.7 Total Bilirubin 0.7 AST 37 H ALT 26 Alkaline Phosphatase 84 Total Protein 6.4 Albumin 3.5 Globulin 2.9 Albumin/Globulin Ratio 1.2 PFSH Medical History HTN (hypertension) Arthritis GERD (gastroesophageal reflux disease) Meningioma (~2013) Eczema Diverticulitis Colitis 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 Acute alcoholic pancreatitis, recurrent, present on admission - etiology remains likely alocholic induced. Biliary less likely without stones. - Advanced to clear liquids last night, will reassess this afternoon about possible low fat diet for dinner time depending on tolerance today. - trend LFTs. These are slightly improved today, further suggesting EtOH etiology. - Continue IV dilaudid 2mg q2hr. Add PO dilaudid as well to try and reduce IV, and set up for possible discharge home in the next few days. 2. HTN - continue home metoprolol at 25 mg daily. 3. Over active bladder - continue home trospium. Code; Full. Surrogate is , advanced directive has been scanned. Dispo: Admitted inpatient, possible discharge home in 1-2 days depending on improvement in pain. I have utilized all available immediate resources to obtain, update, or review the patient's current medications. Time-Based Coding :: [TOTAL MINUTES] spent with patient and on the chart (including review of chart, obtaining history, exam, reviewing outside data, placing orders, documenting exam and treatment plan, and counseling patient) on [DATE].
[2024-02-11 12:00] VITALS: BP 118/55; PULSE 66; RESP 18; TEMP 36.9; O2SAT 94
--- NOTE | 2024-02-11 14:44 | CM.DPC ---
DCP Cont: Per MD, pt making some improvements but working on better pain control and likely here another day or two before medically stable to discharge. Per Rn, no concerns at this time, pt independent in room. MEMO Faust
[2024-02-11 16:00] VITALS: BP 134/72; PULSE 71; RESP 18; TEMP 37.2; O2SAT 94
[2024-02-11 20:00] VITALS: BP 121/59; PULSE 71; RESP 19; TEMP 36.6; O2SAT 97
[2024-02-11] MEDS: SENNOSIDES 8.6 MG TABLET 17.2 MG PO (20:59)
[2024-02-11] MEDS: FAMOTIDINE 20 MG TABLET PO (20:59)
[2024-02-12] VITALS (8 sets, daily range): BP systolic 117–155; BP diastolic 62–98; PULSE 65–73; RESP 16–19; TEMP 36.6–37.1; O2SAT 91–96
[2024-02-12] MEDS: SODIUM CHLORIDE 0.9% 1,000 ML 125 ML IV ×2 (02:02→10:20)
[2024-02-12] MEDS: ONDANSETRON 4 MG/2 ML INJ IV (05:14)
[2024-02-12 05:47] LABS: Add Manual Diff / Slide Review NO; Basophils Absolute Auto 100 /uL (0-100); Basophils Percent Auto 0.8 % (0-2); Eosinophils Absolute Auto 200 /uL (0-450); Eosinophils Percent Auto 1.6 % (2-4); Hematocrit 37.4 % (36-46); Hemoglobin 12.3 g/dL (12.0-16.0); Lymphocytes Absolute Auto 1400 /uL (1100-4500); Lymphocytes Percent Auto 11.2 % (25-40); Mean Corpuscular HGB Conc 32.9 % (30-36); Mean Corpuscular Hemoglobin 30.2 PG (26-34); Mean Corpuscular Volume 91.8 fL (80-100); Monocytes Absolute Auto 700 /uL (0-900); Neutrophils Absolute Auto 9900 /uL (1500-7000); Neutrophils Percent Auto 80.4 % (50-75); Platelet Count 220 X10^3/uL (150-400); Red Blood Cell Count 4.07 X10^6/uL (4.0-5.2); Red Cell Distribution Width 14.1 % (11.6-14.8); White Blood Cell Count 12.3 X10^3/uL (4.5-11.0)
[2024-02-12 06:06] LABS: Chloride 106 mmol/L (98-107); HEMOLYSIS < 15 (0-50)
[2024-02-12 06:07] LABS: Alanine Aminotransferase 24 IU/L (<35); Albumin 3.8 g/dL (3.5-5.0); Albumin Globulin Ratio 1.2 (1.0-2.8); Alkaline Phosphatase 90 U/L (38-126); Aspartate Aminotransferase 33 IU/L (14-36); BUN Creatinine Ratio 10.9 (6-22); Bilirubin Total 0.8 mg/dL (0.2-1.3); Blood Urea Nitrogen 7 mg/dL (7-17); Calcium 9.1 mg/dL (8.4-10.2); Carbon Dioxide 23 mmol/L (22-32); Estimated Glomerular Filt Rate > 60 mL/min (>60); Globulin 3.1 g/dL (1.7-4.1); Glucose 104 mg/dL (80-110); Magnesium 1.7 mg/dL (1.6-2.3); Potassium 3.4 mmol/L (3.4-5.1); Sodium 136 mmol/L (137-145); Total Protein 6.9 g/dL (6.3-8.2)
[2024-02-12] MEDS: HYDROMORPHONE 1 MG INJ IV ×2 (06:37→21:03)
[2024-02-12] MEDS: HEPARIN 5,000 UNIT/ML VIAL 5000 UNIT SUBCUT ×2 (10:16→21:03)
[2024-02-12] MEDS: FAMOTIDINE 20 MG TABLET PO (10:16)
[2024-02-12] MEDS: ACETAMINOPHEN 325 MG TABLET 650 MG PO (10:16)
[2024-02-12] MEDS: SENNOSIDES 8.6 MG TABLET 17.2 MG PO (10:17)
[2024-02-12] MEDS: METOPROLOL ER 25 MG TABLET PO (10:17)
[2024-02-12] MEDS: MAGNESIUM CHLORIDE 64 MG TABLET 128 MG PO (10:27)
[2024-02-12] MEDS: POTASSIUM CHLORIDE 20 MEQ TAB 40 MEQ PO (10:28)
--- NOTE | 2024-02-12 10:42 | PM.PN.1 ---
Subjective Subjective Interval history: 83 F admitted with pancreatitis, likely due to EtOH. Had severe pain early this morning again, but overall improved she says again. Would like to try some food. Exam Vital Signs (past 8 hours): - 02/12/24 04:00 02/12/24 08:00 02/12/24 10:17 Temperature 98.4 F 97.9 F Pulse Rate 73 68 65 Respiratory Rate 19 16 Blood Pressure 155/77 H 141/98 H Pulse Oximetry 95 91 Oxygen Delivery Method Nasal Cannula Oxygen Flow Rate 0 Narrative Exam Narrative: General:? Patient is well developed and well nourished, in no distress at this time. HEENT:? Normocephalic, atraumatic, extraocular muscles intact, oral pharynx is clear and mucous membranes are dry. Neck: supple and symmetric, trachea is midline, no cervical adenopathy. Negative for JVD Chest:? Normal AP diameter and contour without kyphoscoliosis, no tachypnea, equal chest rise bilaterally. Lungs:? CTA b/l no wheezing rhonchi or rales. Cardio:?RRR no m/r/g. Abdomen: S non-distended, moderate tenderness epigastrium Musculoskeletal:? Muscle strength and tone are equal within normal limits, no deformity. Extremities: No edema or joint effusions. No cyanosis or clubbing. Skin:? Pale,? Warm to touch,dry and intact without rashes, ulcerations or petechiae.? Neuro:? Alert and orientated x3,? sensation to touch intact in all extremities, no gross deficits noted of cranial nerves. Psych:? Patient has a well-kept appearance, appropriate affect, mental status attitude thought context and judgment are appropriate for age. Objective Labs 02/12/24 05:19 02/12/24 05:19 Labs: Laboratory Results - last 24 hr 02/12/24 05:19 WBC 12.3 H RBC 4.07 Hgb 12.3 Hct 37.4 MCV 91.8 MCH 30.2 MCHC 32.9 RDW 14.1 Plt Count 220 Neut % (Auto) 80.4 H Lymph % (Auto) 11.2 L [place] % (Auto) 6.0 Eos % (Auto) 1.6 L Baso % (Auto) 0.8 Neut # (Auto) 9900 H Lymph # (Auto) 1400 [place] # (Auto) 700 Eos # (Auto) 200 Baso # (Auto) 100 Sodium 136 L Potassium 3.4 Chloride 106 Carbon Dioxide 23 BUN 7 Creatinine 0.64 Estimated GFR > 60 BUN/Creatinine Ratio 10.9 Glucose 104 Calcium 9.1 Magnesium 1.7 Total Bilirubin 0.8 AST 33 ALT 24 Alkaline Phosphatase 90 Total Protein 6.9 Albumin 3.8 Globulin 3.1 Albumin/Globulin Ratio 1.2 PFSH Medical History HTN (hypertension) Arthritis GERD (gastroesophageal reflux disease) Meningioma (~2013) Eczema Diverticulitis Colitis 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 Acute alcoholic pancreatitis, recurrent, present on admission - etiology remains likely alocholic induced. Biliary less likely without stones. - Advance to low fat for lunch given patient's preference today, watch for increasing pain. - trend LFTs. These are slightly improved today, further suggesting EtOH etiology. - Continue IV dilaudid 2mg q2hr. Added PO dilaudid as well to try and reduce IV, and set up for possible discharge home in the next few days. 2. HTN - continue home metoprolol at 25 mg daily. 3. Over active bladder - continue home trospium. Code; Full. Surrogate is , advanced directive has been scanned. Dispo: Admitted inpatient, possible discharge home in 1-2 days depending on improvement in pain. I have utilized all available immediate resources to obtain, update, or review the patient's current medications. Time-Based Coding :: [TOTAL MINUTES] spent with patient and on the chart (including review of chart, obtaining history, exam, reviewing outside data, placing orders, documenting exam and treatment plan, and counseling patient) on [DATE].
--- NOTE | 2024-02-12 12:10 | CM.DPC ---
DCP Cont. Reviewed EMR and team rounds for status updates. Per Hospitalist, pt has advanced to a low-fat diet today, and will likely still need another 2-days inpt before she is medically stable for d/c.
[2024-02-13] VITALS: BP 114/86; PULSE 72; RESP 19; TEMP 36.6; O2SAT 96
[2024-02-13] MEDS: SODIUM CHLORIDE 0.9% 1,000 ML 125 ML IV (02:29)
--- NOTE | 2024-02-13 05:50 | PC.NURSE ---
during meditech downtime (everything below charted in paper medical record): 0445- pt reports 5/10 abdominal pain. grunting and guarding, can't et comfortable in bed. pain medication interventions discussed. 0455- dilaudid 1 mg IV administered. 0525- pt verbalizes pain improvement and is down to a 3/10. pt states that the pain is tolerable.
[2024-02-13 05:55] LABS: Add Manual Diff / Slide Review NO; Basophils Absolute Auto 100 /uL (0-100); Basophils Percent Auto 0.6 % (0-2); Eosinophils Absolute Auto 300 /uL (0-450); Eosinophils Percent Auto 2.5 % (2-4); Hematocrit 35.3 % (36-46); Hemoglobin 11.8 g/dL (12.0-16.0); Lymphocytes Absolute Auto 1400 /uL (1100-4500); Lymphocytes Percent Auto 13.3 % (25-40); Mean Corpuscular HGB Conc 33.5 % (30-36); Mean Corpuscular Hemoglobin 30.5 PG (26-34); Mean Corpuscular Volume 91.2 fL (80-100); Monocytes Absolute Auto 800 /uL (0-900); Monocytes Percent Auto 8.3 % (3-14); Neutrophils Absolute Auto 7700 /uL (1500-7000); Neutrophils Percent Auto 75.3 % (50-75); Platelet Count 239 X10^3/uL (150-400); Red Blood Cell Count 3.87 X10^6/uL (4.0-5.2); White Blood Cell Count 10.2 X10^3/uL (4.5-11.0)
[2024-02-13 05:59] LABS: Alanine Aminotransferase 21 IU/L (<35); Albumin 3.7 g/dL (3.5-5.0); Albumin Globulin Ratio 1.2 (1.0-2.8); Alkaline Phosphatase 86 U/L (38-126); Aspartate Aminotransferase 29 IU/L (14-36); BUN Creatinine Ratio 9.4 (6-22); Bilirubin Total 0.6 mg/dL (0.2-1.3); Blood Urea Nitrogen 6 mg/dL (7-17); Calcium 9.2 mg/dL (8.4-10.2); Carbon Dioxide 22 mmol/L (22-32); Chloride 107 mmol/L (98-107); Estimated Glomerular Filt Rate > 60 mL/min (>60); Globulin 3.1 g/dL (1.7-4.1); Glucose 106 mg/dL (80-110); HEMOLYSIS < 15 (0-50); Magnesium 1.8 mg/dL (1.6-2.3); Potassium 3.5 mmol/L (3.4-5.1); Sodium 136 mmol/L (137-145); Total Protein 6.8 g/dL (6.3-8.2)
[2024-02-13 08:00] VITALS: BP 147/77; PULSE 66; RESP 14; TEMP 36.9; O2SAT 98
[2024-02-13 09:49] VITALS: BP 147/77; PULSE 66
[2024-02-13] MEDS: SENNOSIDES 8.6 MG TABLET 17.2 MG PO (09:49)
[2024-02-13] MEDS: METOPROLOL ER 25 MG TABLET PO (09:49)
[2024-02-13] MEDS: HEPARIN 5,000 UNIT/ML VIAL 5000 UNIT SUBCUT (09:50)
[2024-02-13] MEDS: FAMOTIDINE 20 MG TABLET PO (09:53)
[2024-02-13] MEDS: OXYCODONE IR 5 MG TABLET PO (10:29)
--- NOTE | 2024-02-13 12:00 | P.DS_ITS ---
History of Present Illness History of Present Illness Chief complaint: Abd pain Narrative: From H&P: 83-year-old female with past history of GERD hypertension and alcohol related acute pancreatitis back in 2022 presents with abdominal pain. Per the patient report, the patient started to have worsening epigastric abdominal pain that started yesterday. The patient also has some nausea and vomiting that is non bloody. The patient said that she has not been drinking lately but this pain is very similar to the one last year where she was diagnosed with alcoholic pancreatitis. The last alcohool drink was reported 5 days ago and only one glass of red wine. Otherwise patient denies any fever, chills, chest pain, shortness of breath, diarrhea or syncope. In our emergency room, the patient was hemodynamically stable. Labs were benign with normal Bili and only mildly elevated AST. Alcohol level was negative. lipase level however was 39,000s. The patient received IV fluid as well as IV Dilaudid. Abdominal ultrasound done in the ER did not show any stone or inflamed gallbladder. Common bile duct was 8 mm. Discharge Providers Provider Date of admission: 02/10/24 01:42 Discharge Date: 02/13/24 Primary care physician: Joycelyn Padgett PA-C Consults: None Discharge provider: Luis Chirinos MD Summary Hospital Course Discharge Diagnosis: 1. Acute alcoholic pancreatitis, recurrent, present on admission and improved. - etiology remains likely alocholic induced. Biliary less likely without stones. 2. HTN, present on admission and stable. - continue home metoprolol at 25 mg daily. 3. Over active bladder, present on admission and stable. - continue home trospium. Hospital Course: She was admitted for presumed alcohol-induced pancreatitis and treated with typical bowel rest, IV fluids and analgesics. She improved. On the day of discharge she was able to eat without difficulty and had good pain control with oral medications. She was stable for discharge home and advised not to use alcohol. Status at Discharge Cognitive/behavioral status at discharge: oriented Functional status at discharge: independent ambulation Overall status at discharge: patient is back to baseline Time Spent with Patient Time spent: Greater than 30 minutes Exam Vital Signs (past 8 hours): - 02/13/24 08:00 02/13/24 09:49 Temperature 98.5 F Pulse Rate 66 66 Respiratory Rate 14 Blood Pressure 147/77 H 147/77 H Pulse Oximetry 98 Oxygen Flow Rate 0 Oxygen Delivery Method Nasal Cannula Oxygen Flow Rate 0 Narrative Exam Narrative: NAD, alert and oriented. Fluent speech. Lungs are clear, normal rate and effort. Heart is regular, no murmur gallop or rub. Abdomen is soft, non distended. Extremities are free of edema. Objective Imaging Multiple studies:: Radiologist's impression: Abdomen ultrasound: Unremarkable sonographic appearance of the gallbladder. CBD is borderline distended at 8 mm. Correlate with LFTs. Increased hepatic echogenicity, likely steatosis, also seen on prior MRI. Abdomen MRI: 1. Edema signal surrounding the pancreas. This is concerning for pancreatitis. No loculated fluid collection. 2. Pericholecystic fluid and distended gallbladder. Findings could be secondary reactive or due to cholecystitis. No gallstones seen. 3. No biliary or pancreatic ductal dilatation. No choledocholithiasis. Abdomen and pelvis CT: 1. Finding is concerning for acute pancreatitis. No definite pancreatic lesion. No peripancreatic fluid collection. 2. Distended gallbladder without calcified gallstones. Questionable gallbladder wall thickening or edema. No significant biliary ductal dilatation. Early acute cholecystitis cannot be excluded. Clinical correlation is recommended. 3. Likely tiny cysts in right and left hepatic lobes measures less than 1 cm in size. 4. No bowel obstruction or abnormal bowel wall thickening. Normal appendix. No free fluid or free air. No abscess collection. No significant discrepancies from preliminary reading. Labs 02/13/24 04:47 02/13/24 04:47 Labs: Laboratory Results - last 24 hr 02/13/24 04:47 WBC 10.2 RBC 3.87 L Hgb 11.8 L Hct 35.3 L MCV 91.2 MCH 30.5 MCHC 33.5 RDW 14.0 Plt Count 239 Neut % (Auto) 75.3 H Lymph % (Auto) 13.3 L [place] % (Auto) 8.3 Eos % (Auto) 2.5 Baso % (Auto) 0.6 Neut # (Auto) 7700 H Lymph # (Auto) 1400 [place] # (Auto) 800 Eos # (Auto) 300 Baso # (Auto) 100 Sodium 136 L Potassium 3.5 Chloride 107 Carbon Dioxide 22 BUN 6 L Creatinine 0.64 Estimated GFR > 60 BUN/Creatinine Ratio 9.4 Glucose 106 Calcium 9.2 Magnesium 1.8 Total Bilirubin 0.6 AST 29 ALT 21 Alkaline Phosphatase 86 Total Protein 6.8 Albumin 3.7 Globulin 3.1 Albumin/Globulin Ratio 1.2 PFSH Medical History HTN (hypertension) Arthritis GERD (gastroesophageal reflux disease) Meningioma (~2014) Eczema Diverticulitis Colitis 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 Acute alcoholic pancreatitis, recurrent, present on admission and improved. Plan of Treatment: Stable for discharge home, pain medications as needed. The importance of complete alcohol avoidance is also shared. Discharge Plan Discharge Plan Patient Disposition: Home Provider Discharge Comment: Stable for discharge home, advised not to use alcohol. Discharge orders & Medications Prescriptions: New oxycodone 5 mg Tablet 5 mg PO Q4HR PRN (Reason: Pain, Moderate (4-6)) Qty: 15 0RF Continued IBU 400 mg tablet 400 mg PO Q4HR PRN (Reason: Pain, Mild) metoprolol succinate [Toprol XL] 25 mg tablet extended release 24 hr 25 mg PO DAILY trospium 20 mg tablet 20 mg PO BID Follow up/Referrals: Joycelyn Padgett PA-C [Primary Care Provider] - Discharge Health Status Multidrug resistant organism: No MDRO Diet/Activity/Treatments Diet: Diet as Tolerated Visit Report/Discharge Packet Instructions: DI for Acute Pancreatitis-Child Stand Alone Forms: Patient Portal/API Discharge Data Primary Care Provider: Joycelyn Padgett
--- NOTE | 2024-02-13 14:03 | PC.NURSE ---
Patient is A&OX4, VSS, on RA, afebrile. She is cleared for discharge today after tolerating both breakfast and lunch w/o n/v. She reports pain in abdomen 4/10 controlled well with po oxycodone. She verbalizes understanding of discharge follow up recommendations and is escorted via w/ch with all of her personal belongings this afternoon at approximately 1300 to a private vehicle with her friend for transport home today.
== END 2024-02-13 13:05 | disposition home or self-care (01) | DRG 440 ==
LOC: ED 02-10 01:41 → AC 02-10 01:42
PROVIDERS: Internal Medicine; Admitting Provider Internal Medicine; Emergency Provider Emergency Medicine; PCP Physician Assistant Medical; Referring Provider Emergency Medicine; Visit Provider Internal Medicine
DX: K85.20 Alcohol induced acute pancreatitis without necrosis or infection (principal); E86.0 Dehydration; I10 Essential (primary) hypertension; N32.81 Overactive bladder; Z87.891 Personal history of nicotine dependence
CPT/HCPCS: 36415; 76705; 80053; 80320; 83690; 83735; 85025; 96361; 96374; 96375; 99284; 99285; A9270; J1171; J1644; J2270; J2405; J3410

== ENCOUNTER → 2024-05-22 10:41 | Outpatient (CLI) | payer MEDICARE, SELFPAY ==
[2024-02-10 02:43] VITALS: BMI 34.4
--- NOTE | 2024-05-22 10:43 | DI.US.S_ITS ---
PROCEDURE: US ABDOMEN LIMITED INDICATIONS: POSS GALLBLADDER/PANCREATIC DUCT INVOLVEMENT TECHNIQUE: Real-time scanning was performed of the abdominal and retroperitoneal organs, with image documentation. COMPARISON: [facility], , US ABDOMEN LIMITED, 02/10/2024, 0:20. FINDINGS: Liver: Mild hepatomegaly of the liver measures up to approximately 18 centimeters in CC dimension of the right lobe. Mild diffuse increased echogenicity of the liver commonly hepatic steatosis or intrinsic hepatic disease unchanged. Gallbladder: No gallstones. No wall thickening. No pericholecystic edema. Negative sonographic Oswald's sign. Biliary ducts: Intrahepatic bile ducts are non-dilated. Extrahepatic bile duct caliber measures 4mm. Normal is 6mm or less in diameter. Pancreas: Visualized portions of the pancreas are sonographically normal. Pancreatic tail is not well visualized due to overlying bowel gas per notes. Right kidney measures approximately 11.4 centimeters in length with cortex approximately 1.3 centimeters thickness. Right renal superior pole simple cyst measuring approximately 7.4 x 6.9 x 6.8 cm minimally increased from 6.9 centimeters on prior exam. Miscellaneous: No free abdominal fluid. IMPRESSION: New or increased mild hepatomegaly and unchanged diffuse increased echogenicity of the liver. Remainder of the exam unchanged as discussed above. No gallstones. Common bile duct 4 millimeters within normal limits. Dictated by: Oren Araujo M.D. on 05/22/2024 at 13:25 Approved by: Oren Araujo M.D. on 05/22/2024 at 13:35
== END ==
PROVIDERS: PCP Physician Assistant Medical; Referring Provider Physician Assistant Medical; Visit Provider Physician Assistant Medical
DX: K85.20 Alcohol induced acute pancreatitis without necrosis or infection (principal); R16.0 Hepatomegaly, not elsewhere classified; N28.1 Cyst of kidney, acquired
CPT/HCPCS: 76705